=== PATIENT | male | born 1985 | race American Indian/Alaskan Native ===

== ENCOUNTER 2016-12-10 06:32 | Emergency (ER) | payer MEDICARE, OTHER ==
[2016-12-10 06:42] VITALS: BMI 18.1
[2016-12-10 06:47] VITALS: RESP 18; O2SAT 100
[2016-12-10] MEDS ORDERED: Sodium Chloride 0.9% 1,000 ML IV STA (07:29)
[2016-12-10] MEDS ORDERED: HYDROmorphone 1 mg/ml ISec IVP STA (07:29)
--- NOTE | 2016-12-10 07:35 | ED PDOC ---
Arrival/HPI - General Chief Complaint: Abdominal Pain Time Seen by Provider: 12/10/16 07:07 Historian: Patient - History of Present Illness Narrative History of Present Illness (Text): 12/10/16 07:35 31 year old male returns to the emergency department with generalized abdominal pain that feels like his pancreatitis symptoms. Patient was seen in the emergency department yesterday and treated for the same complaints of abdominal pain, nausea, and vomiting. He was offered admission but reported that he wanted to be discharged to follow-up with his pain management doctor. Patient claims the pain is worsening. He is requesting pain medication. When initially giving the history, patient appears to be writhing in pain but when I offered admission, patient appears to be in no distress and is able to speak in full sentences without difficulty. He reports multiple episodes of vomiting and diarrhea. Denies chest pain or shortness of breath. PMD: Dr. Dao Symptom Onset: Gradual Symptom Course: Unchanged Modifying Factors (Text): None Associated Symptoms (Text): None Past Medical History - Provider Review Nursing Documentation Reviewed: Yes - Cardiac Hx Cardiac Disorders: No - Pulmonary Hx Respiratory Disorders: No - Neurological Hx Neurological Disorder: No - HEENT Hx HEENT Disorder: No - Renal Hx Renal Disorder: No - Endocrine/Metabolic Hx Diabetes Mellitus Type 1: Yes - Hematological/Oncological Hx Blood Disorders: No - Integumentary Hx Dermatological Disorder: No - Musculoskeletal/Rheumatological Hx Musculoskeletal Disorders: No - Gastrointestinal Hx Pancreatitis: Yes - Genitourinary/Gynecological Hx Genitourinary Disorders: No - Psychiatric Hx Psychophysiologic Disorder: No Hx Substance Use: No - Surgical History Hx Cholecystectomy: Yes Family/Social History - Physician Review Nursing Documentation Reviewed: Yes Family/Social History: Unknown Family HX Smoking Status: Light Smoker < 10 Cigarettes Daily Hx Alcohol Use: No Hx Substance Use: No Allergies/Home Meds Allergies/Adverse Reactions: Allergies famotidine [From Pepcid] Allergy (Verified 12/10/16 06:47) NAUSEA ketorolac tromethamine [From Toradol] Allergy (Verified 12/10/16 06:47) NAUSEA tramadol Allergy (Verified 12/10/16 06:47) NAUSEA Home Medications: Home Meds Medication Instructions Recorded Confirmed No Known Home Med 12/10/16 12/10/16 Review of Systems - Review of Systems Constitutional: absent: Fevers Eyes: absent: Vision Changes, Eye Pain ENT: absent: Hearing Changes, Sinus Congestion Respiratory: absent: SOB, Cough Cardiovascular: absent: Chest Pain, Palpitations, Edema, Calf Pain Gastrointestinal: Abdominal Pain, Diarrhea, Nausea, Vomiting. absent: Constipation Genitourinary Male: absent: Dysuria, Frequency Musculoskeletal: absent: Neck Pain Skin: absent: Rash, Pruritis Neurological: absent: Headache, Dizziness Endocrine: absent: Polyuria Hemo/Lymphatic: absent: Easy Bleeding Psychiatric: absent: Depression Physical Exam Vital Signs Reviewed: Yes Vital Signs Temp Pulse Resp BP Pulse Ox 12/10/16 09:01 90 18 102/62 100 12/10/16 06:46 98.4 F 84 18 111/57 L 100 Temperature: Afebrile Blood Pressure: Normal Pulse: Regular Respiratory Rate: Normal Appearance: Positive for: Well-Appearing, Non-Toxic, Uncomfortable Pain Distress: None Mental Status: Positive for: Alert and Oriented X 3 - Systems Exam Head: Present: Atraumatic, Normocephalic Pupils: Present: PERRL Extroacular Muscles: Present: EOMI Conjunctiva: Present: Normal Mouth: Present: Moist Mucous Membranes Neck: Present: Normal Range of Motion Respiratory/Chest: Present: Clear to Auscultation, Good Air Exchange. No: Respiratory Distress, Accessory Muscle Use Cardiovascular: Present: Regular Rate and Rhythm, Normal S1, S2. No: Murmurs Abdomen: Present: Tenderness (Mild generalized tenderness), Normal Bowel Sounds. No: Distention, Peritoneal Signs, Rebound, Guarding Back: Present: Normal Inspection Upper Extremity: Present: Normal Inspection. No: Cyanosis, Edema Lower Extremity: Present: Normal Inspection. No: Edema Neurological: Present: GCS=15, CN II-XII Intact, Speech Normal (Speaking full sentences without difficulty) Skin: Present: Warm, Dry, Normal Color. No: Rashes Psychiatric: Present: Alert, Oriented x 3, Normal Insight, Normal Concentration Medical Decision Making ED Course and Treatment: Impression: 31 year old male with a history of pancreatitis returns to the emergency department with same pancreatitis symptoms of abdominal pain, nausea, and vomiting after being seen yesterday for same symptoms. He has failed outpatient therapy and will likely need admission Differential Diagnosis include but are not limited to: Plan: -- IV fluids --Pain medication, anti-emetic --Labs -- Reassess and disposition Prior Visits: Notes and results from previous visits were reviewed. Previous records show that patient has old records under a different account showing multiple visits to the emergency department for the same symptoms with patient requesting pain medicine prior to physical exam. Patient was seen yesterday 12/09/16 for same symptoms and discharged home. CT Abdomen/Pelvis IMPRESSION from 12/09/16: 1. Pancreatic parenchyma is calcified and atrophic consistent with chronic pancreatitis. No significant findings or change to suggest acute pancreatitis. 2. Mild fluid distention of the colon with a few air-fluid levels without signs of obstruction. Some wall thickening in the right colon which may reflect mild colitis versus luminal collapse. 3. Mild fluid distention of stomach and duodenum with air fluid levels may reflect gastroenteritis Progress Notes: 12/10/16 08:29 EKG done at triage shows NSR at 92bpm with QTc:487. No ST changes. Labs reviewed and essentially unchanged from yesterday. 12/10/16 08:56 On reevaluation, I offered patient admission. He reports that he feels better and reports that he wants to be discharged. He reports that he has follow-up with [facility] for surgery to remove his pancreas (scheduled for December) and has pain mgmt follow-up. He is tolerating po. Will dc - Lab Interpretations Lab Results: 12/10/16 07:46 12/10/16 07:46 Lab Results 12/10/16 07:46: WBC 6.3, RBC 3.81, Hgb 11.2 L, Hct 32.9 L, MCV 86.4, MCH 29.4, MCHC 34.0, RDW 13.7, Plt Count 142, MPV 10.7, Gran % 73.8 H, Lymph % (Auto) 21.7 L, [place] % (Auto) 3.8, Eos % (Auto) 0.5 L, Baso % (Auto) 0.2, Gran # 4.66, Lymph # 1.4, [place] # 0.2, Eos # 0.0, Baso # 0.01, Sodium 140, Potassium 3.6, Chloride 107, Carbon Dioxide 25, Anion Gap 12, BUN < 2 L, Creatinine 0.6, Est GFR ( Amer) > 60, Est GFR (Non-Af Amer) > 60, Random Glucose 168 H, Calcium 8.3 L, Total Bilirubin 1.4 H, AST 24, ALT 28, Alkaline Phosphatase 119, Lactate Dehydrogenase 570, Total Protein 5.8, Albumin 3.0, Globulin 2.8, Albumin /Globulin Ratio 1.1, Lipase < 10 L - Medication Orders Current Medication Orders: Discontinued Medications Diphenhydramine HCl (Benadryl) 50 mg IVP STAT STA Stop: 12/10/16 07:56 Last Admin: 12/10/16 08:04 Dose: 50 MG IVP Administration Document 12/10/16 08:04 OCS (Rec: 12/10/16 08:04 OCS [id number]) Charges for Administration # of IVP Administrations 1 Hydromorphone HCl (Dilaudid) 1 mg IVP STAT STA Stop: 12/10/16 07:30 Last Admin: 12/10/16 07:45 Dose: 1 MG IVP Administration Document 12/10/16 07:45 OCS (Rec: 12/10/16 07:57 OCS [id number]) Charges for Administration # of IVP Administrations 1 Sodium Chloride (Sodium Chloride 0.9%) 1,000 mls @ 999 mls/hr IV .Q1H1M STA Stop: 12/10/16 08:29 Last Admin: 12/10/16 07:45 Dose: 999 MLS/HR eMAR Start Stop Document 12/10/16 07:45 OCS (Rec: 12/10/16 07:58 OCS [id number]) Intravenous Solution Start Date 12/10/16 Start Time 07:45 - Scribe Statement The provider has reviewed the documentation as recorded by the Reese Fontanez Provider Scribe Attestation: All medical record entries made by the Reese were at my direction and personally dictated by me. I have reviewed the chart and agree that the record accurately reflects my personal performance of the history, physical exam, medical decision making, and the department course for this patient. I have also personally directed, reviewed, and agree with the discharge instructions and disposition. Disposition/Present on Arrival - Present on Arrival Any Indicators Present on Arrival: No History of DVT/PE: No History of Uncontrolled Diabetes: No Urinary Catheter: No History of Decub. Ulcer: No History Surgical Site Infection Following: None - Disposition Have Diagnosis and Disposition been Completed?: Yes Diagnosis: Pancreatitis Disposition: HOME/ ROUTINE Disposition Time: 08:57 Patient Plan: Discharge Patient Problems: Current Active Problems Problem Status Diagnosed Pancreatitis Acute Condition: GOOD Discharge Instructions (ExitCare): Pancreatitis (ED) Additional Instructions: Follow up with your pain mgmt doctor today. Follow-up with your PMD within 2 days. Continue to follow-up with all specialists for your pancreatitis. Return to ED if condition worsens. Referrals: Juan Dao MD [Primary Care Provider] - Follow up with primary
[2016-12-10 07:52] LABS: ADD MANUAL DIFF? NO
[2016-12-10] MEDS ORDERED: DiphenhydrAMINE 50 mg/ml Inj IVP STA (07:55)
[2016-12-10 07:58] LABS: BASO # 0.01 K/mm3 (0.0-2.0); BASO % 0.2 % (0.0-3.0); EOS % 0.5 % (1.5-5.0); GRAN # 4.66 (1.4-6.5); GRAN % 73.8 % (50.0-68.0); HEMATOCRIT 32.9 % (42.0-52.0); LYMPH # 1.4 (1.2-3.4); LYMPH % 21.7 % (22.0-35.0); MEAN CELL VOLUME 86.4 fL (80.0-105.0); MEAN CORPUSCULAR HEMOGLOBIN 29.4 pg (25.0-35.0); MEAN PLATELET VOLUME 10.7 fl (7.0-11.0); MONO # 0.2 (0.1-0.6); MONO % 3.8 % (1.0-6.0); PLATELET COUNT 142 10^3/uL (120.0-450.0); RED CELL DISTRIBUTION WIDTH 13.7 % (11.5-14.5); WHITE BLOOD COUNT 6.3 10^3/ul (4.5-11.0)
[2016-12-10 08:22] LABS: ALB/GLOB RATIO 1.1 (1.1-1.8); ALKALINE PHOSPHATASE 119 U/L (38-133); ALT/SGPT 28 U/L (7-56); AST/SGOT 24 U/L (15-59); BILIRUBIN,TOTAL 1.4 mg/dL (0.2-1.3); BLOOD UREA NITROGEN < 2 mg/dL (7-21); CALCIUM 8.3 mg/dL (8.4-10.5); CARBON DIOXIDE 25 mmol/L (21-33); CHLORIDE 107 mmol/L (98-107); GFR AFRICAN-AMERICAN > 60; GLUCOSE,RANDOM 168 mg/dL (70-110); LIPASE < 10 U/L (23-300); POTASSIUM 3.6 mmol/L (3.6-5.0); SODIUM 140 mmol/L (132-148); TOTAL PROTEIN 5.8 g/dL (5.8-8.3)
--- NOTE | 2016-12-10 10:29 | CARD ---
APPROVED REPORT EKG Measurement Heart [id number] LA [id number] <Conclusion> Sinus rhythm with short LA RVCD NSSTW changes Prolonged QTc
[2016-12-10 11:16] VITALS: BP 123/60; PULSE 85; TEMP 98.2
== END 2016-12-10 11:20 | disposition home or self-care (01) ==
LOC: ED 06:32 → ERH 10:50 → UNDOADMIN 10:50 → ED 11:20
DX: K85.90 Acute pancreatitis without necrosis or infection, unspecified (principal); F17.210 Nicotine dependence, cigarettes, uncomplicated; E10.9 Type 1 diabetes mellitus without complications
CPT/HCPCS: 80053; 83615; 83690; 85025; 93005; 96374; 96375; 99283; J1170; J1200; J7040

== ENCOUNTER 2016-12-11 11:30 | Inpatient (IN) | payer MEDICARE, OTHER ==
[2016-12-11 11:44] VITALS: O2SAT 100
[2016-12-11] MEDS ORDERED: Sodium Chloride 0.9% 1,000 ML IV STA (11:51)
[2016-12-11] MEDS ORDERED: DiphenhydrAMINE 50 mg/ml Inj IVP ONE (11:52)
--- NOTE | 2016-12-11 11:57 | ED PDOC ---
Arrival/HPI - General Chief Complaint: Abdominal Pain Time Seen by Provider: 12/11/16 11:43 Historian: Patient - History of Present Illness Narrative History of Present Illness (Text): 12/11/16 11:56 A 31 year old male, whose past medical history includes pancreatitis, presents to the emergency department complaining of generalized abdominal pain. Patient notes nausea, non-bilious non-bloody vomiting, diarrhea and itchiness. Patient states his symptoms feel similar to previous pancreatitis flare up. Patient was seen in the emergency department the past 2 days for the same complaints. Patient denies any fever, chest pain, shortness of breath or any other complaints. PMD: Dr. Dao Time/Duration: Other (3 days) Symptom Course: Unchanged Quality: Other Context: Other Associated Symptoms (Text): 12/11/16 12:44 Chronic abdominal pain secondary to chronic pancreatitis. Cholecystectomy many years ago. Patient was seen in the emergency department yesterday and the day before yesterday. He refused admission yesterday. Had a CT scan 2 days ago which showed no acute findings. Nausea and vomiting but no diarrhea. He is thin cachectic and chronically ill-appearing. He denies alcohol or drugs. He also complains of severe generalized body itching. Past Medical History - Provider Review Nursing Documentation Reviewed: Yes - Infectious Disease Hx of Infectious Diseases: None - Cardiac Hx Cardiac Disorders: No - Pulmonary Hx Respiratory Disorders: No - Neurological Hx Neurological Disorder: No - HEENT Hx HEENT Disorder: No - Renal Hx Renal Disorder: No - Endocrine/Metabolic Hx Diabetes Mellitus Type 1: Yes - Hematological/Oncological Hx Blood Disorders: No - Integumentary Hx Dermatological Disorder: No - Musculoskeletal/Rheumatological Hx Musculoskeletal Disorders: No - Gastrointestinal Hx Pancreatitis: Yes - Genitourinary/Gynecological Hx Genitourinary Disorders: No - Psychiatric Hx Psychophysiologic Disorder: No Hx Substance Use: No - Surgical History Hx Cholecystectomy: Yes Family/Social History - Physician Review Nursing Documentation Reviewed: Yes Family/Social History: No Known Family HX Smoking Status: Light Smoker < 10 Cigarettes Daily Hx Alcohol Use: No Hx Substance Use: No Allergies/Home Meds Allergies/Adverse Reactions: Allergies famotidine [From Pepcid] Allergy (Verified 12/10/16 06:47) NAUSEA ketorolac tromethamine [From Toradol] Allergy (Verified 12/10/16 06:47) NAUSEA tramadol Allergy (Verified 12/10/16 06:47) NAUSEA Home Medications: Home Meds Medication Instructions Recorded Confirmed Insulin Aspart, Recombinant See Protocol 12/11/16 [Novolog] Review of Systems - Physician Review All systems were reviewed & negative as marked: Yes - Review of Systems Constitutional: Weight Change. absent: Fevers Respiratory: absent: SOB Cardiovascular: absent: Chest Pain Gastrointestinal: Abdominal Pain, Diarrhea, Nausea, Vomiting Skin: Pruritis, Other (itchiness) Physical Exam Vital Signs Reviewed: Yes Vital Signs Temp Pulse Resp BP Pulse Ox 12/11/16 13:49 75 18 105/51 L 100 12/11/16 12:00 79 18 102/42 L 100 12/11/16 11:43 98.7 F 84 20 100/24 L 100 Temperature: Afebrile Blood Pressure: Hypotensive Pulse: Regular Respiratory Rate: Normal Appearance: Positive for: Non-Toxic, Comfortable, Ill-Appearing, Cachectic, Other (Thin) Pain Distress: Other (Pain out of proportion to examination) Mental Status: Positive for: Alert and Oriented X 3 - Systems Exam Head: Present: Atraumatic, Normocephalic Pupils: Present: PERRL Extroacular Muscles: Present: EOMI Conjunctiva: Present: Normal Mouth: Present: Moist Mucous Membranes Pharnyx: No: ERYTHEMA, EXUDATE, TONSILS ENLARGED Neck: Present: Normal Range of Motion Respiratory/Chest: Present: Clear to Auscultation, Good Air Exchange. No: Respiratory Distress, Accessory Muscle Use Cardiovascular: Present: Regular Rate and Rhythm, Normal S1, S2. No: Murmurs Abdomen: Present: Tenderness (Abdominal tenderness to palpation, pain out of proportion to exam), Normal Bowel Sounds, Guarding (Voluntary guarding). No: Distention, Peritoneal Signs, Rebound Back: No: CVA Tenderness Upper Extremity: Present: Normal Inspection. No: Cyanosis, Edema Lower Extremity: Present: Normal Inspection. No: Edema Neurological: Present: GCS=15, CN II-XII Intact, Speech Normal, Motor Func Grossly Intact Skin: Present: Warm, Dry, Normal Color. No: Rashes Psychiatric: Present: Alert, Oriented x 3, Normal Insight, Normal Concentration Medical Decision Making ED Course and Treatment: 12/11/16 11:56 Impression: A 31 year old male with abdominal pain. Patient notes nausea, vomiting, diarrhea and itchiness. Plan: -- Labs -- Benadryl, Protonix, IV fluids and Zofran -- Reassess and disposition Prior Visits: Notes and results from previous visits were reviewed. Patient in ED the past 2 days for the same complaints. Patient had a CT done on 12/09/16, which showed: Report Date : 12/10/2016 07:45:32 PROCEDURE: CT Abdomen and Pelvis with contrast Dictator : Vlad Azevedo MD IMPRESSION: Nonspecific circumferential mural thickening of multiple loops of small bowel in the left side of the abdomen, presumably jejunum. Consistent with nonspecific enteritis. Status post cholecystectomy. Nonspecific 1.3 cm low -attenuation lesion in the left hepatic lobe. Findings consistent with chronic pancreatitis. No evidence of acute pancreatitis. No other significant abnormality. Progress Notes: 12/11/16 13:[address] Coleman, who states to page medicine acquisitions analyst. 12/11/16 14:[address] Fountain, who refused admission. Recommends hospitalist. Spoke with Dr. Coleman, who agrees with admission under his service. - Lab Interpretations Lab Results: 12/11/16 12:25 12/11/16 12:25 Lab Results 12/11/16 12:25: WBC 3.8 L D, RBC 3.74, Hgb 11.1 L, Hct 32.5 L, MCV 86.9, MCH 29.7, MCHC 34.2, RDW 14.0, Plt Count 213, MPV 9.6, Gran % 51.9, Lymph % (Auto) 43.3 H, [place] % (Auto) 3.7, Eos % (Auto) 0.8 L, Baso % (Auto) 0.3, Gran # 1.98, Lymph # 1.7, [place] # 0.1, Eos # 0.0, Baso # 0.01, Sodium 138, Potassium 3.6, Chloride 107, Carbon Dioxide 25, Anion Gap 10, BUN < 2 L, Creatinine 0.5, Est GFR ( Amer) > 60, Est GFR (Non-Af Amer) > 60, Random Glucose 291 H, Calcium 8.2 L, Total Bilirubin 1.5 H, AST 21, ALT 16, Alkaline Phosphatase 115, Total Protein 5.8, Albumin 3.0, Globulin 2.8, Albumin/Globulin Ratio 1.1, Lipase < 10 L I have reviewed the lab results: Yes - Medication Orders Current Medication Orders: Sodium Chloride (Sodium Chloride 0.9%) 1,000 mls @ 100 mls/hr IV .Q10H HAROLDO Insulin Human Regular (Humulin R Med) 0 units SC ACHS HAROLDO PRN Reason: Protocol Morphine Sulfate (Morphine) 2 mg IVP Q6H PRN PRN Reason: Pain, moderate (4-7) Ondansetron HCl (Zofran Inj) 4 mg IVP Q6H PRN PRN Reason: Nausea/Vomiting Pantoprazole Sodium (Protonix Inj) 40 mg IVP DAILY HAROLDO Discontinued Medications Diphenhydramine HCl (Benadryl) 50 mg IVP ONCE ONE Stop: 12/11/16 11:53 Last Admin: 12/11/16 12:30 Dose: 50 MG IVP Administration Document 12/11/16 12:30 SF (Rec: 12/11/16 12:30 SF [facility] [id number]) Charges for Administration # of IVP Administrations 1 Sodium Chloride (Sodium Chloride 0.9%) 1,000 mls @ 1,000 mls/hr IV .Q1H STA Stop: 12/11/16 12:50 Last Admin: 12/11/16 12:30 Dose: 1,000 MLS/HR eMAR Start Stop Document 12/11/16 12:30 SF (Rec: 12/11/16 12:30 SF [facility] [id number]) Intravenous Solution Start Date 12/11/16 Start Time 12:30 End Date 12/11/16 End time 13:30 Total Infusion Time 60 Ondansetron HCl (Zofran Inj) 4 mg IVP STAT STA Stop: 12/11/16 11:52 Last Admin: 12/11/16 12:30 Dose: 4 MG IVP Administration Document 12/11/16 12:30 SF (Rec: 12/11/16 12:30 SF [facility] [id number]) Charges for Administration # of IVP Administrations 1 Pantoprazole Sodium (Protonix Inj) 40 mg IVP STAT STA Stop: 12/11/16 11:52 Last Admin: 12/11/16 12:29 Dose: 40 MG IVP Administration Document 12/11/16 12:29 SF (Rec: 12/11/16 12:30 SF [facility] [id number]) Charges for Administration # of IVP Administrations 1 - Scribe Statement The provider has reviewed the documentation as recorded by the Scribe Disposition/Present on Arrival - Present on Arrival Any Indicators Present on Arrival: No History of DVT/PE: No History of Uncontrolled Diabetes: No Urinary Catheter: No History of Decub. Ulcer: No History Surgical Site Infection Following: None - Disposition Have Diagnosis and Disposition been Completed?: Yes Diagnosis: Chronic pancreatitis Disposition: HOSPITALIZED Disposition Time: 14:25 Patient Plan: Observation Patient Problems: Current Active Problems Problem Status Diagnosed Chronic pancreatitis Acute Condition: GOOD
[2016-12-11 13:01] LABS: ADD MANUAL DIFF? NO
[2016-12-11 13:02] LABS: BASO # 0.01 K/mm3 (0.0-2.0); BASO % 0.3 % (0.0-3.0); EOS % 0.8 % (1.5-5.0); GRAN # 1.98 (1.4-6.5); GRAN % 51.9 % (50.0-68.0); HEMATOCRIT 32.5 % (42.0-52.0); LYMPH # 1.7 (1.2-3.4); LYMPH % 43.3 % (22.0-35.0); MEAN CELL VOLUME 86.9 fL (80.0-105.0); MEAN CORPUSCULAR HEMOGLOBIN 29.7 pg (25.0-35.0); MEAN CORPUSCULAR HGB CONC 34.2 g/dl (31.0-37.0); MEAN PLATELET VOLUME 9.6 fl (7.0-11.0); MONO # 0.1 (0.1-0.6); MONO % 3.7 % (1.0-6.0); PLATELET COUNT 213 10^3/uL (120.0-450.0); WHITE BLOOD COUNT 3.8 10^3/ul (4.5-11.0)
[2016-12-11 13:12] LABS: ALB/GLOB RATIO 1.1 (1.1-1.8); ALKALINE PHOSPHATASE 115 U/L (38-133); ALT/SGPT 16 U/L (7-56); AST/SGOT 21 U/L (15-59); BILIRUBIN,TOTAL 1.5 mg/dL (0.2-1.3); CALCIUM 8.2 mg/dL (8.4-10.5); CARBON DIOXIDE 25 mmol/L (21-33); CHLORIDE 107 mmol/L (98-107); GFR AFRICAN-AMERICAN > 60; GLUCOSE,RANDOM 291 mg/dL (70-110); POTASSIUM 3.6 mmol/L (3.6-5.0); SODIUM 138 mmol/L (132-148); TOTAL PROTEIN 5.8 g/dL (5.8-8.3)
[2016-12-11 13:17] LABS: BLOOD UREA NITROGEN < 2 mg/dL (7-21); LIPASE < 10 U/L (23-300)
[2016-12-11] MEDS: Sodium Chloride 0.9% 1,000 ML IV SCH (15:15)
--- NOTE | 2016-12-11 15:32 | CP.PCM.HP ---
<Juan Liang - Last Filed: 12/11/16 15:44> History of Present Illness - History of Present Illness History of Present Illness: CC: Abdominal Pain 31yo M with PMHx of Chronic pancreatitis here for evaluation of abdominal pain. Patient states that he has had multiple episodes such as this in the past. He was diagnosed with pancreatitis when he was 15 years old. He has had multiple episodes of severe epigastric pain since then. Last pancreatitis flare was 3 months ago. He states that current flare has been ongoing for the past 3 days. Pain is severe, sharp, located in the epigastric region and radiates throughout the entire abdomen. No exacerbating or remitting factors reported. He states that he was evaluated in the [place] ED a few days ago and obtained a CT scan of the abdomen at that time. He states that he has been having nausea, non- bilious non bloody vomiting, multiple episodes over the past 2 days. He also has had multiple episodes of diarrhea over the past 2 days, denies any bloody stools. He does c/o weight loss but unable to quantify. Denies any F/C. No CP/ SOB. No Headache. No focal deficits. Patient obtained a CT Abd 2 days ago which showed evidence of nonspecific enteritis and evidence of chronic pancreatitis. No Evidence of acute pancreatitis. PMD: [facility] GI: [facility] PMHx: Chronic Pancreatitis PSHx: reports multiple abdominal surgeries with multiple small bowel resections. Cholecystectomy. Family Hx: Denies Social Hx: Denies ETOH, Denies Drugs, Denies Tobacco use. Works as a alliance party promoter Allergy: Pepcid, Toradol - Rash, Tramadol - uncontrolled sneezing Meds: Novolog Sliding Scale Present on Admission - Present on Admission Any Indicators Present on Admission: No Review of Systems - Constitutional Constitutional: absent: Chills, Fever - EENT Eyes: absent: Blurred Vision - Cardiovascular Cardiovascular: absent: Chest Pain, Dyspnea - Respiratory Respiratory: absent: Cough, Dyspnea - Gastrointestinal Gastrointestinal: Abdominal Pain, Diarrhea, Nausea, Vomiting - Genitourinary Genitourinary: absent: Dysuria - Musculoskeletal Musculoskeletal: absent: Abnormal Gait - Neurological Neurological: absent: Abnormal Gait, Dizziness, Headaches - Psychiatric Psychiatric: absent: Anxiety Past Patient History - Infectious Disease Hx of Infectious Diseases: None - Past Medical History & Family History Past Family History: Reviewed and not pertinent - Past Social History Smoking Status: Light Smoker < 10 Cigarettes Daily - CARDIAC Hx Cardiac Disorders: No - PULMONARY Hx Respiratory Disorders: No - NEUROLOGICAL Hx Neurological Disorder: No - HEENT Hx HEENT Problems: No - RENAL Hx Chronic Kidney Disease: No - ENDOCRINE/METABOLIC Hx Diabetes Mellitus Type 1: Yes - HEMATOLOGICAL/ONCOLOGICAL Hx Blood Disorders: No - INTEGUMENTARY Hx Dermatological Problems: No - MUSCULOSKELETAL/RHEUMATOLOGICAL Hx Musculoskeletal Disorders: No - GASTROINTESTINAL Hx Pancreatitis: Yes - GENITOURINARY/GYNECOLOGICAL Hx Genitourinary Disorders: No - PSYCHIATRIC Hx Psychophysiologic Disorder: No Hx Substance Use: No - SURGICAL HISTORY Hx Cholecystectomy: Yes Meds Allergies/Adverse Reactions: Allergies Allergy/AdvReac Type Severity Reaction Status Date / Time famotidine [From Pepcid] Allergy NAUSEA Verified 12/11/16 21:17 ketorolac tromethamine Allergy NAUSEA Verified 12/11/16 21:17 [From Toradol] tramadol Allergy NAUSEA Verified 12/11/16 21:17 Physical Exam - Constitutional Appears: Cachectic - Head Exam Head Exam: ATRAUMATIC, NORMAL INSPECTION, NORMOCEPHALIC - Eye Exam Eye Exam: EOMI, Normal appearance, PERRL. absent: Scleral icterus Pupil Exam: PERRL - ENT Exam ENT Exam: Mucous Membranes Moist, Normal Exam - Neck Exam Neck exam: Positive for: Normal Inspection - Respiratory Exam Respiratory Exam: Clear to Auscultation Bilateral, NORMAL BREATHING PATTERN. absent: Wheezes, Respiratory Distress - Cardiovascular Exam Cardiovascular Exam: REGULAR RHYTHM, RRR, +S1, +S2. absent: JVD - GI/Abdominal Exam GI & Abdominal Exam: Guarding (voluntary guarding), Normal Bowel Sounds, Rigid, Tenderness (Diffusely tender to light palpation) Additional comments: Midline Abdominal scar - Extremities Exam Extremities exam: Positive for: normal inspection. Negative for: calf tenderness - Back Exam Back exam: NORMAL INSPECTION - Neurological Exam Neurological exam: Alert, CN II-XII Intact, Oriented x3 - Skin Skin Exam: Dry, Intact, Normal Color, Warm Results - Vital Signs Recent Vital Signs: Last Vital Signs Temp 98.7 F 12/11/16 11:43 Pulse 75 12/11/16 13:49 Resp 18 12/11/16 13:49 BP 105/51 L 12/11/16 13:49 Pulse Ox 100 12/11/16 13:49 - Labs Result Diagrams: 12/11/16 12:25 12/11/16 12:25 Assessment & Plan - Assessment and Plan (Free Text) Assessment: 31yo M with PMHx of Chronic Pancreatitis here for evaluation of diffuse abdominal pain. 1. Abdominal pain Consider pain medication seeking behavior Lipase negative CT Abd w/contrast 12/09: nonspecific enteritis, Chronic pancreatitis with no evidence of acute pancreatitis. Consult GI, Dr. Hook, appreciate recs NPO Zofran 4mg q6 prn Morphine 2mg q6 prn f/u Abd Xray f/u cdiff f/u lipid panel f/u serum alcohol level f/u UDS continue IVF NS @100 serial abdominal exams 2. Hx of DM Insulin SS Accuchecks f/u HbA1c 3. PPx SCDs Protonix 40mg IV Daily Discussed case with Dr. Coleman. Juan Liang PGY1 <Gomez Coleman - Last Filed: 12/12/16 06:52> Results - Vital Signs Recent Vital Signs: Last Vital Signs Temp 98.7 F 12/11/16 22:39 Pulse 69 12/11/16 22:39 Resp 18 12/11/16 22:39 BP 107/59 L 12/11/16 22:39 Pulse Ox 100 12/11/16 15:27 - Labs Result Diagrams: 12/11/16 12:25 12/11/16 12:25 Labs: Laboratory Results - last 24 hr 12/11/16 12/11/16 12/11/16 17:15 17:29 21:55 POC Glucose (mg/dL) 247 H 49 L Urine Color Yellow Urine Appearance Clear Urine pH 6.0 Ur Specific [place] 1.025 Urine Protein Negative Urine Glucose (UA) 100 H Urine Ketones Trace H Urine Blood Negative Urine Nitrate Negative Urine Bilirubin Negative Urine Urobilinogen 0.2 Ur Leukocyte Esterase Negative 12/11/16 22:42 POC Glucose (mg/dL) 247 H Urine Color Urine Appearance Urine pH Ur Specific [place] Urine Protein Urine Glucose (UA) Urine Ketones Urine Blood Urine Nitrate Urine Bilirubin Urine Urobilinogen Ur Leukocyte Esterase Attending/Attestation - Attestation I have personally seen and examined this patient.: Yes I have fully participated in the care of the patient.: Yes I have reviewed all pertinent clinical information: Yes Notes (Text): 12/11/16 31 year old male with past medical history of chronic pancreatitis and diabetes who presents with complaint of abdominal pain. He was seen in the ER for the past 2 days as well with similar presentation and had a CT abd/pelvis which showed nonspecific enteritis and chronic pancreatitis. He was discharged when he reported his pain improved but returned today with diffuse abdominal pain again. Patient reports he has history of chronic pancreatitis since the age of 15. He reports he has had "15-17 surgeries" including cholecystectomy. He denies illicit drug use or alcohol use. He states he had a EGD/colonoscopy in the past which was normal per patient. In ER he appears comfortable except at time of abdominal examination. + Voluntary guarding on palpation but when re-directed not present. He is asking only for iv narcotics and benadryl for chronic itch. He reports multiple drug allergies as above. Will obtain abdominal xray. NPO with iv fluids, antiemetics prn and analgesics. Serial abdominal exams. Utox, alcohol level and lipid panel is ordered. GI evaluation is requested. Continue with insulin ss for diabetes. A1c level is ordered. Gomez Coleman MD Hospitalist.
[2016-12-11 15:53] LABS: CHOLESTEROL 115 mg/dL (130-200)
[2016-12-11] MEDS: Morphine 2 mg/ml ISec IVP PRN ×2 (17:26→22:56)
[2016-12-11] MEDS: Insulin Reg-MEDIUM-Coverage SC SCH ×2 (17:29→22:51)
[2016-12-11 17:41] LABS: URINE BILIRUBIN NEGATIVE (NEGATIVE); URINE BLOOD NEGATIVE (NEGATIVE); URINE GLUCOSE (UA) 100 mg/dL (NEGATIVE); URINE KETONE TRACE mg/dL (NEGATIVE); URINE LEUKOCYTE ESTERASE NEGATIVE Leu/uL (NEGATIVE); URINE PROTEIN NEGATIVE mg/dL (<30 mg/dL); URINE UROBILINOGEN 0.2 E.U./dL (<1 E.U./dL)
[2016-12-11 17:43] LABS: URINE APPEARANCE CLEAR (CLEAR); URINE COLOR YELLOW (YELLOW)
--- NOTE | 2016-12-11 19:02 | RAD ---
HISTORY: Abd pain COMPARISON: No prior. FINDINGS: BOWEL: Normal abdominal bowel gas pattern. No evidence of bowel obstruction. No hepatosplenomegaly. BONES: Normal. OTHER FINDINGS: None. IMPRESSION: Normal bowel gas pattern.
[2016-12-11] MEDS ORDERED: Dextrose 50% SYRINGE Inj (50 ml) IVP ONE (22:04)
[2016-12-11 22:58] VITALS: BMI 18.3
[2016-12-11] MEDS ORDERED: Influenza Vaccine 45 MCG/0.5 ml IM ONE (22:58)
[2016-12-11] MEDS ORDERED: Pneumococcal 23-Valent Vaccine IM ONE (22:58)
[2016-12-12] MEDS: Sodium Chloride 0.9% 1,000 ML IV SCH ×3 (02:53→23:22)
[2016-12-12] MEDS: Morphine 2 mg/ml ISec IVP PRN ×4 (04:06→19:40)
[2016-12-12] MEDS: Insulin Reg-MEDIUM-Coverage SC SCH ×4 (08:25→21:57)
--- NOTE | 2016-12-12 08:27 | CP.PCM.CON ---
<Farrah Elder - Last Filed: 12/12/16 09:55> History of Present Illness - History of Present Illness History of Present Illness: Gastroenterology Fellow/PGY4 Consult Note Patient is a 31 year old male with history of Chronic pancreatitis presenting with abdominal pain. At present evaluation, patient is irrate and upset that he is not receiving enough pain medication and not the right pain medication. Stating "he needs Dilaudid and morphine is not doing anything". He does not feel that providing his history is going to help and believes "I just need my pain improved and all the questions are not important". Questioning asked without answer include underlying cause of chronic pancreatitis, prior surgeries other than cholecystectomy, when and why admitted to [facility] last for pancreatitis, number of episodes of vomiting and diarrhea. All responses were "not important and why won't the doctors give me pain medicine". He as well refused lab draws stating to insurance adviser "not needed". Patient does state left abdominal pain has been worsening over the last three days with three ER presentations, pain scale 23/10. in exaggeration of vomiting fourteen times and doesn't know the difference between vomiting food/bile/blood and it is not important. Admits to have diarrhea at least five times a day which is chronic. He refuses to answer presence of melena or hematochezia. Denies diarrhea overnight. He states he has lost weight, unable to quantify. He denies fever, chills, sweats, sick contacts, or recent antibiotics. Refuses to discuss prior endoscopic evaluation. Family-denies Pancreatic cancer, stomach cancer, colon cancer, pancreatitis Social-denies tobacco, alcohol, illicit drugs Surgery-only endorses cholecystectomy, refuses additional questioning Review of Systems - Review of Systems Systems not reviewed;Unavailable: Other Review of Systems: A 12-point review of systems limited secondary to patient being uncooperative to questioning Past Patient History - Infectious Disease Hx of Infectious Diseases: None - Past Medical History & Family History Past Family History: Reviewed and not pertinent - Past Social History Smoking Status: Never Smoked - CARDIAC Hx Cardiac Disorders: No - PULMONARY Hx Respiratory Disorders: No - NEUROLOGICAL Hx Neurological Disorder: No - HEENT Hx HEENT Problems: No - RENAL Hx Chronic Kidney Disease: No - ENDOCRINE/METABOLIC Hx Endocrine Disorders: Yes Hx Diabetes Mellitus Type 1: Yes - HEMATOLOGICAL/ONCOLOGICAL Hx Blood Disorders: No - INTEGUMENTARY Hx Dermatological Problems: Yes (GENERALIZED SKIN DRYNESS,PUSTULES WITH ITCHING, TATTOOS) - MUSCULOSKELETAL/RHEUMATOLOGICAL Hx Musculoskeletal Disorders: No Hx Falls: No - GASTROINTESTINAL Hx Gastrointestinal Disorders: Yes Hx Pancreatitis: Yes (CHRONIC) - GENITOURINARY/GYNECOLOGICAL Hx Genitourinary Disorders: No - PSYCHIATRIC Hx Psychophysiologic Disorder: No Hx Substance Use: No - SURGICAL HISTORY Hx Surgeries: Yes (MULTIPLE ABDOMINAL SURGERYAND MULTIPLE SB RESECTION.) Hx Cholecystectomy: Yes Meds Allergies/Adverse Reactions: Allergies Allergy/AdvReac Type Severity Reaction Status Date / Time famotidine [From Pepcid] Allergy NAUSEA Verified 12/11/16 21:17 ketorolac tromethamine Allergy NAUSEA Verified 12/11/16 21:17 [From Toradol] tramadol Allergy NAUSEA Verified 12/11/16 21:17 - Medications Medications: Current Medications Sodium Chloride (Sodium Chloride 0.9%) 1,000 mls @ 100 mls/hr IV .Q10H [facility] Last Admin: 12/12/16 02:53 Dose: 100 mls/hr Insulin Human Regular (Humulin R Med) 0 units SC ACHS [facility] PRN Reason: Protocol Last Admin: 12/11/16 22:51 Dose: Not Given Morphine Sulfate (Morphine) 2 mg IVP Q6H PRN PRN Reason: Pain, moderate (4-7) Last Admin: 12/12/16 04:06 Dose: 2 mg Ondansetron HCl (Zofran Inj) 4 mg IVP Q6H PRN PRN Reason: Nausea/Vomiting Pantoprazole Sodium (Protonix Inj) 40 mg IVP DAILY [facility] Physical Exam - Constitutional Appears: Non-toxic, No Acute Distress - Head Exam Head Exam: ATRAUMATIC, NORMOCEPHALIC - Eye Exam Eye Exam: EOMI, PERRL Pupil Exam: PERRL. absent: Miosis, Mydriatic - ENT Exam ENT Exam: Mucous Membranes Moist, Normal Oropharynx - Neck Exam Neck exam: Positive for: Full Rom, Normal Inspection - Respiratory Exam Respiratory Exam: Clear to Auscultation Bilateral. absent: Rales, Rhonchi, Wheezes - Cardiovascular Exam Cardiovascular Exam: RRR, +S1, +S2. absent: Gallop, Rubs - GI/Abdominal Exam GI & Abdominal Exam: Normal Bowel Sounds, Soft, Tenderness. absent: Distended, Firm, Guarding, Organomegaly, Rebound, Rigid Additional comments: limited exam with patient refusal to lay supine or move upper extremities for complete exam, extreme curling up of body to minimal, superficial palpation of abdominal wall - Extremities Exam Extremities exam: Positive for: full ROM. Negative for: pedal edema - Neurological Exam Neurological exam: Alert - Psychiatric Exam Psychiatric exam: Agitated - Skin Skin Exam: Dry, Intact, Normal Color, Warm Results - Vital Signs Recent Vital Signs: Last Vital Signs Temp 98.7 F 12/11/16 22:39 Pulse 69 12/11/16 22:39 Resp 18 12/11/16 22:39 BP 107/59 L 12/11/16 22:39 Pulse Ox 100 12/11/16 15:27 - Labs Result Diagrams: 12/11/16 12:25 12/11/16 12:25 Labs: Laboratory Results - last 24 hr 12/11/16 12/11/16 12/11/16 17:15 17:29 21:55 POC Glucose (mg/dL) 247 H 49 L Urine Color Yellow Urine Appearance Clear Urine pH 6.0 Ur Specific [place] 1.025 Urine Protein Negative Urine Glucose (UA) 100 H Urine Ketones Trace H Urine Blood Negative Urine Nitrate Negative Urine Bilirubin Negative Urine Urobilinogen 0.2 Ur Leukocyte Esterase Negative 12/11/16 12/12/16 22:42 07:25 POC Glucose (mg/dL) 247 H 129 H Urine Color Urine Appearance Urine pH Ur Specific [place] Urine Protein Urine Glucose (UA) Urine Ketones Urine Blood Urine Nitrate Urine Bilirubin Urine Urobilinogen Ur Leukocyte Esterase Assessment & Plan - Assessment and Plan (Free Text) Assessment: 31 year old male with history of Chronic pancreatitis presenting with progressive abdominal pain. Uncooperative to history and exam. Recent CT A/P on first of three ER visits showed chronic pancreatitis and thick small bowel of left abdomen. Refuses to discuss prior endoscopic evaluation. Abdominal pain Nonspecific Enteritis Chronic pancreatitis Plan: >difficult assessment in an uncooperative patient >concern for pain medicine seeking behavior >continue supportive care: PPI, antiemetics >primary team managing -pain control >pending Cdiff, stool culture >labs/vitals reviewed- normal LFTs, lipase, electrolytes >patient does report weight loss, diarrhea, vomiting, pain >re-assess additional history if willing to cooperate with medical care >would benefit from elective endoscopic evaluation if never completed: EGD/ colonoscopy/EUS >patient has established Copy Chaser, Dr. Baca, follow up for re- evaluation after acute resolution of symptoms <Tee Hook MD - Last Filed: 12/12/16 11:29> Meds - Medications Medications: Current Medications Amylase (Pancrease 57153 U-5000 [id number] U) 1 u PO AC [facility] Sodium Chloride (Sodium Chloride 0.9%) 1,000 mls @ 100 mls/hr IV .Q10H [facility] Last Admin: 12/12/16 02:53 Dose: 100 mls/hr Insulin Human Regular (Humulin R Med) 0 units SC ACHS [facility] PRN Reason: Protocol Last Admin: 12/12/16 08:25 Dose: Not Given Morphine Sulfate (Morphine) 2 mg IVP Q4H PRN PRN Reason: Pain, severe (8-10) Last Admin: 12/12/16 10:31 Dose: 2 mg Ondansetron HCl (Zofran Inj) 4 mg IVP Q6H PRN PRN Reason: Nausea/Vomiting Pantoprazole Sodium (Protonix Inj) 40 mg IVP DAILY [facility] Last Admin: 12/12/16 10:31 Dose: 40 mg Results - Vital Signs Recent Vital Signs: Last Vital Signs Temp 98.7 F 12/11/16 22:39 Pulse 69 12/11/16 22:39 Resp 18 12/11/16 22:39 BP 107/59 L 12/11/16 22:39 Pulse Ox 100 12/11/16 15:27 - Labs Result Diagrams: 12/11/16 12:25 12/11/16 12:25 Labs: Laboratory Results - last 24 hr 12/11/16 12/11/16 12/11/16 17:15 17:29 21:55 POC Glucose (mg/dL) 247 H 49 L Urine Color Yellow Urine Appearance Clear Urine pH 6.0 Ur Specific [place] 1.025 Urine Protein Negative Urine Glucose (UA) 100 H Urine Ketones Trace H Urine Blood Negative Urine Nitrate Negative Urine Bilirubin Negative Urine Urobilinogen 0.2 Ur Leukocyte Esterase Negative 12/11/16 12/12/16 22:42 07:25 POC Glucose (mg/dL) 247 H 129 H Urine Color Urine Appearance Urine pH Ur Specific [place] Urine Protein Urine Glucose (UA) Urine Ketones Urine Blood Urine Nitrate Urine Bilirubin Urine Urobilinogen Ur Leukocyte Esterase Attending/Attestation - Attestation I have personally seen and examined this patient.: Yes I have fully participated in the care of the patient.: Yes I have reviewed all pertinent clinical information: Yes Notes (Text): 12/12/16 11:26 Patient seen with GI fellow at bedside on rounds. This is a 31 year old male with history of chronic pancreatitis presenting with progressive abdominal pain. Uncooperative to history and exam. Recent CT A/P on first of three ER visits showed chronic pancreatitis and thick small bowel of left abdomen. Refuses to discuss prior endoscopic evaluation. Has pain medication seeking behavior. Asking for dilaudid even though he is on morphine. Not on pancreatic enzymes even though he has history of chronic pancreatitis. Normal LFT, lipase. No choledocholithiasis. Denies change in bowel habits. Will start pancreatic enzymes and clear liquid diet. If tolerates can advance and be discharged Thank you for letting us participate in the care of your patient
[2016-12-12] MEDS: Amylase/Lipase/Protease 5,000 U ECC PO SCH ×2 (13:09→18:39)
--- NOTE | 2016-12-12 13:29 | CP.PCM.PN ---
<Meño Guadalupe - Last Filed: 12/12/16 14:46> Subjective - Date & Time of Evaluation Date of Evaluation: 12/12/16 Time of Evaluation: 08:30 - Subjective Subjective: Patient seen and examined at bedside. Overnight patient complained of abdominal pain and requested for pain medication multiple times. Patient also complains of having multiple vomiting episodes. Patient states morphine is not strong enough to treat with his pain. Despite of his complains, his vitals remained hypotensive. Denies fever, chills, shortness of breath, chest pain, or headache. Discussed with patient in detail about dangers of his low blood pressure and pain medication use, but patient still insists on requesting more pain meds. Objective - Vital Signs/Intake and Output Vital Signs (last 24 hours): Temp Pulse Resp BP Pulse Ox 98.7 F 69 18 107/59 L 100 12/11/16 22:39 12/11/16 22:39 12/11/16 22:39 12/11/16 22:39 12/11/16 15:27 Intake and Output: 12/12/16 12/12/16 06:59 18:59 Intake Total 1200 Balance 1200 - Medications Medications: Current Medications Amylase (Pancrease 12535 U-5000 U-[id number] U) 1 u PO AC [facility] Last Admin: 12/12/16 13:09 Dose: Not Given Sodium Chloride (Sodium Chloride 0.9%) 1,000 mls @ 100 mls/hr IV .Q10H [facility] Last Admin: 12/12/16 02:53 Dose: 100 mls/hr Insulin Human Regular (Humulin R Med) 0 units SC ACHS [facility] PRN Reason: Protocol Last Admin: 12/12/16 11:39 Dose: Not Given Morphine Sulfate (Morphine) 2 mg IVP Q4H PRN PRN Reason: Pain, severe (8-10) Last Admin: 12/12/16 10:31 Dose: 2 mg Ondansetron HCl (Zofran Inj) 4 mg IVP Q6H PRN PRN Reason: Nausea/Vomiting Pantoprazole Sodium (Protonix Inj) 40 mg IVP DAILY [facility] Last Admin: 12/12/16 10:31 Dose: 40 mg - Constitutional Appears: Cachectic - Head Exam Head Exam: ATRAUMATIC, NORMAL INSPECTION, NORMOCEPHALIC - Eye Exam Eye Exam: EOMI, Normal appearance - ENT Exam ENT Exam: Mucous Membranes Moist, Normal Exam - Neck Exam Neck Exam: Normal Inspection - Respiratory Exam Respiratory Exam: Clear to Ausculation Bilateral, NORMAL BREATHING PATTERN. absent: Respiratory Distress - Cardiovascular Exam Cardiovascular Exam: REGULAR RHYTHM, RRR, +S1, +S2. absent: Murmur - GI/Abdominal Exam GI & Abdominal Exam: Soft, Normal Bowel Sounds. absent: Tenderness - Extremities Exam Extremities Exam: Normal Inspection. absent: Calf Tenderness - Back Exam Back Exam: NORMAL INSPECTION - Neurological Exam Neurological Exam: Alert, Awake, Oriented x3 - Psychiatric Exam Psychiatric exam: Manic - Skin Skin Exam: Dry, Intact, Warm Assessment and Plan - Assessment and Plan (Free Text) Assessment: 31yo M with PMHx of Chronic Pancreatitis here for evaluation of diffuse abdominal pain. 1. Abdominal pain Clear pain medication seeking behavior Lipase negative CT Abd w/contrast 12/09: nonspecific enteritis, Chronic pancreatitis with no evidence of acute pancreatitis. Consult GI, Dr. Hook, appreciate recs Advance to clear liquid and start pancreatic enzyme per GI Zofran 4mg q6 prn Morphine 2mg q4 prn Unremarkable Abd Xray f/u cdiff lipid panel cholester 115 serum alcohol level <10 f/u UDS continue IVF NS @100 serial abdominal exams 2. Hx of DM Insulin SS Accuchecks HbA1c 12.5 3. PPx SCDs Protonix 40mg IV Daily <Gomez Coleman - Last Filed: 12/12/16 15:36> Objective - Vital Signs/Intake and Output Vital Signs (last 24 hours): Temp Pulse Resp BP Pulse Ox 98.7 F 69 18 107/59 L 100 12/11/16 22:39 12/11/16 22:39 12/11/16 22:39 12/11/16 22:39 12/11/16 15:27 Intake and Output: 12/12/16 12/12/16 06:59 18:59 Intake Total 1200 Balance 1200 - Medications Medications: Current Medications Amylase (Pancrease 54086 U-5000 U-[id number] U) 1 u PO AC [facility] Last Admin: 12/12/16 13:09 Dose: Not Given Sodium Chloride (Sodium Chloride 0.9%) 1,000 mls @ 100 mls/hr IV .Q10H [facility] Last Admin: 12/12/16 14:00 Dose: 100 mls/hr Insulin Human Regular (Humulin R Med) 0 units SC ACHS [facility] PRN Reason: Protocol Last Admin: 12/12/16 11:39 Dose: Not Given Morphine Sulfate (Morphine) 2 mg IVP Q4H PRN PRN Reason: Pain, severe (8-10) Last Admin: 12/12/16 14:23 Dose: 2 mg Ondansetron HCl (Zofran Inj) 4 mg IVP Q6H PRN PRN Reason: Nausea/Vomiting Pantoprazole Sodium (Protonix Inj) 40 mg IVP DAILY [facility] Last Admin: 12/12/16 10:31 Dose: 40 mg Attending/Attestation - Attestation I have personally seen and examined this patient.: Yes I have fully participated in the care of the patient.: Yes I have reviewed all pertinent clinical information, including history, physical exam and plan: Yes Notes (Text): 12/12/16 15:21 31 year old male with past medical history of chronic pancreatitis and diabetes who presented with complaint of abdominal pain. He was seen in ER several times this week with similar presentation. Recent CT abd/pelvis showed nonspecific enteritis and chronic pancreatitis. He was NPO with iv fluids, analgesics and antiemetics. He continues to complain of nausea/vomiting (not witnessed by staff). He complains of abdominal pain and generalized itching asking only for dilaudid and benadryl. At the same time he is refusing labs and vitals. He refused to give urine drug screen. He is uncooperative with most of interview and examination. Pain medication seeking behavior. He was counselled on risks narcotic abuse. Continue with insulin ss for diabetes. A1c level is ordered. GI evaluation was appreciated. He is started on liquid diet and pancrease enzymes. Plan is for possible discharge today or tomorrow once he is tolerating diet. Gomez Coleman MD Hospitalist.
[2016-12-12 16:53] VITALS: BP 118/72; PULSE 60; RESP 20; TEMP 98.5
[2016-12-12] MEDS ORDERED: DiphenhydrAMINE 50 mg/ml Inj IVP STA (20:16)
[2016-12-13] MEDS: Morphine 2 mg/ml ISec IVP PRN ×5 (00:08→16:01)
[2016-12-13] MEDS ORDERED: DiphenhydrAMINE 50 mg/ml Inj IVP STA ×2 (00:13→11:15)
[2016-12-13] MEDS ORDERED: DiphenhydrAMINE 50 mg/ml Inj IVP ONE (05:11)
[2016-12-13 08:00] LABS: HEMATOCRIT 28.5 % (42.0-52.0); MEAN CELL VOLUME 86.4 fL (80.0-105.0); MEAN CORPUSCULAR HEMOGLOBIN 29.7 pg (25.0-35.0); MEAN CORPUSCULAR HGB CONC 34.4 g/dl (31.0-37.0); MEAN PLATELET VOLUME 9.7 fl (7.0-11.0); RED CELL DISTRIBUTION WIDTH 14.2 % (11.5-14.5); WHITE BLOOD COUNT 4.7 10^3/ul (4.5-11.0)
[2016-12-13 08:12] LABS: CALCIUM 7.2 mg/dL (8.4-10.5); CARBON DIOXIDE 24 mmol/L (21-33); CHLORIDE 109 mmol/L (98-107); GFR AFRICAN-AMERICAN > 60; GLUCOSE,RANDOM 149 mg/dL (70-110); POTASSIUM 3.2 mmol/L (3.6-5.0); SODIUM 138 mmol/L (132-148)
[2016-12-13 08:13] LABS: BLOOD UREA NITROGEN < 2 mg/dL (7-21)
[2016-12-13] MEDS: Amylase/Lipase/Protease 5,000 U ECC PO SCH ×2 (08:19→11:40)
[2016-12-13] MEDS ORDERED: Potassium Chloride 40 mEq/30 ml LIQ UD PO ONE (08:44)
[2016-12-13] MEDS: Insulin Reg-MEDIUM-Coverage SC SCH ×2 (08:50→11:40)
[2016-12-13] MEDS: Sodium Chloride 0.9% 1,000 ML IV SCH (09:05)
--- NOTE | 2016-12-13 12:23 | CP.PCM.DIS ---
<Bill Grimm - Last Filed: 12/13/16 14:19> Provider - Provider Date of Admission: 12/12/16 21:19 Attending physician: Gomez Coleman MD Primary care physician: Juan Dao MD Consults: GI - Dr. Hook Time Spent in preparation of Discharge (in minutes): 45 Diagnosis - Discharge Diagnosis (1) Chronic pancreatitis Status: Chronic Priority: Medium Hospital Course - Lab Results Lab Results: Most Recent Lab Values WBC 4.7 10^3/ul (4.5-11.0) D 12/13/16 07:57 RBC 3.30 10^6/uL (3.5-6.1) L 12/13/16 07:57 Hgb 9.8 gm/dL (14.0-18.0) L 12/13/16 07:57 Hct 28.5 % (42.0-52.0) L 12/13/16 07:57 MCV 86.4 fL (80.0-105.0) 12/13/16 07:57 MCH 29.7 pg (25.0-35.0) 12/13/16 07:57 MCHC 34.4 g/dl (31.0-37.0) 12/13/16 07:57 RDW 14.2 % (11.5-14.5) 12/13/16 07:57 Plt Count 207 10^3/uL (120.0-450.0) 12/13/16 07:57 MPV 9.7 fl (7.0-11.0) 12/13/16 07:57 Gran % 51.9 % (50.0-68.0) 12/11/16 12:25 Lymph % (Auto) 43.3 % (22.0-35.0) H 12/11/16 12:25 Schley % (Auto) 3.7 % (1.0-6.0) 12/11/16 12:25 Eos % (Auto) 0.8 % (1.5-5.0) L 12/11/16 12:25 Baso % (Auto) 0.3 % (0.0-3.0) 12/11/16 12:25 Gran # 1.98 (1.4-6.5) 12/11/16 12:25 Lymph # 1.7 (1.2-3.4) 12/11/16 12:25 Schley # 0.1 (0.1-0.6) 12/11/16 12:25 Eos # 0.0 (0.0-0.7) 12/11/16 12:25 Baso # 0.01 K/mm3 (0.0-2.0) 12/11/16 12:25 Sodium 138 mmol/L (132-148) 12/13/16 07:57 Potassium 3.2 mmol/L (3.6-5.0) L 12/13/16 07:57 Chloride 109 mmol/L (98-107) H 12/13/16 07:57 Carbon Dioxide 24 mmol/L (21-33) 12/13/16 07:57 Anion Gap 8 (10-20) L 12/13/16 07:57 BUN < 2 mg/dL (7-21) L 12/13/16 07:57 Creatinine 0.5 mg/dL (0.5-1.4) 12/13/16 07:57 Est GFR ( Amer) > 60 12/13/16 07:57 Est GFR (Non-Af Amer) > 60 12/13/16 07:57 POC Glucose (mg/dL) 340 mg/dL (65-110) H 12/12/16 21:49 Random Glucose 149 mg/dL (70-110) H 12/13/16 07:57 Hemoglobin A1c 12.5 % (4.2-6.5) H 12/11/16 12:25 Calcium 7.2 mg/dL (8.4-10.5) L 12/13/16 07:57 Total Bilirubin 1.5 mg/dL (0.2-1.3) H 12/11/16 12:25 AST 21 U/L (15-59) 12/11/16 12:25 ALT 16 U/L (7-56) 12/11/16 12:25 Alkaline Phosphatase 115 U/L (38-133) 12/11/16 12:25 Total Protein 5.8 g/dL (5.8-8.3) 12/11/16 12:25 Albumin 3.0 g/dL (3.0-4.8) 12/11/16 12:25 Globulin 2.8 gm/dL 12/11/16 12:25 Albumin/Globulin Ratio 1.1 (1.1-1.8) 12/11/16 12:25 Triglycerides 57 mg/dL (35-160) 12/11/16 12:25 Cholesterol 115 mg/dL (130-200) L 12/11/16 12:25 LDL Cholesterol Direct 54 mg/dL (0-129) 12/11/16 12:25 HDL Cholesterol 40 mg/dL (29-60) 12/11/16 12:25 Lipase < 10 U/L (23-300) L 12/11/16 12:25 Urine Color Yellow (YELLOW) 12/11/16 17:15 Urine Appearance Clear (CLEAR) 12/11/16 17:15 Urine pH 6.0 (4.7-8.0) 12/11/16 17:15 Ur Specific [place] 1.025 (1.005-1.035) 12/11/16 17:15 Urine Protein Negative mg/dL (<30 mg/dL) 12/11/16 17:15 Urine Glucose (UA) 100 mg/dL (NEGATIVE) H 12/11/16 17:15 Urine Ketones Trace mg/dL (NEGATIVE) H 12/11/16 17:15 Urine Blood Negative (NEGATIVE) 12/11/16 17:15 Urine Nitrate Negative (NEGATIVE) 12/11/16 17:15 Urine Bilirubin Negative (NEGATIVE) 12/11/16 17:15 Urine Urobilinogen 0.2 E.U./dL (<1 E.U./dL) 12/11/16 17:15 Ur Leukocyte Esterase Negative [place]/uL (NEGATIVE) 12/11/16 17:15 Alcohol, Quantitative < 10 mg/dL (0-10) 12/11/16 12:25 - Hospital Course Hospital Course: 31 y/o M with PMH of Chronic pancreatitis presented with abdominal pain on . Patient states that he has had multiple episodes such as this in the past. He was diagnosed with pancreatitis when he was 15 years old. He has had multiple episodes of severe epigastric pain since then. Last pancreatitis flare was 3 months ago. He states that current flare has been ongoing for the past 3 days. Pain is severe, sharp, located in the epigastric region and radiates throughout the entire abdomen. No exacerbating or remitting factors reported. He states that he was evaluated in the [place] ED a few days ago and obtained a CT scan of the abdomen at that time. CT showed nonspecific mural thickening of multiple small loops of bowel on left side of abdomen in addition to 1.3 cm of low attenuation lesion in left hepatic lobe. No acute pancreatitis seen on CT. He states that he has been having nausea, non-bilious non bloody vomiting, multiple episodes over the past 2 days. He also has had multiple episodes of diarrhea over the past 2 days, denies any bloody stools. Pt admitted for chronic pancreatitis. Pt initially placed on IVF and pancreatic enzymes, which he said he takes at home. Pt had improvement of symptoms, although he states he chronically has abdominal pain. Pt was evaluated by GI, Dr. Hook, but was uncooperative with exam and discussing prior GI workup and studies. Pt will be discharged with pancreatic enzymes and will follow up with PMD and GI in 1 week. Discharge Exam - Head Exam Head Exam: ATRAUMATIC, NORMAL INSPECTION, NORMOCEPHALIC - ENT Exam ENT Exam: Mucous Membranes Moist, Normal Exam - Respiratory Exam Respiratory Exam: NORMAL BREATHING PATTERN, UNREMARKABLE - Cardiovascular Exam Cardiovascular Exam: RRR, +S1, +S2 - GI/Abdominal Exam GI & Abdominal Exam: Normal Bowel Sounds, Soft, Tenderness (Epigastric) - Extremities Exam Extremities exam: normal inspection - Neurological Exam Neurological exam: Alert, CN II-XII Intact, Oriented x3 - Psychiatric Exam Psychiatric exam: Normal Affect, Normal Mood - Skin Skin Exam: Intact, Normal Color, Warm Discharge Plan - Discharge Medications Prescriptions: Insulin Aspart, Recombinant [Novolog] See Protocol IM DAILY #10 unit Amylase/Lipase/Protease [Pancrease 14242 U-5000 [id number] U] 1 ecc PO DAILY #10 ecc Amylase/Lipase/Protease [Pancrease 27464 U-5000 U-[id number] U] 1 u PO AC #10 ecc - Follow Up Plan Condition: GOOD Disposition: HOME/ ROUTINE Instructions: Pancreatitis (DC) Additional Instructions: Follow up with PMD in 1 week Follow up with GI in 1 week Return to hospital if further worsening of symptoms Referrals: Juan Dao MD [Primary Care Provider] - <Gomez Coleman - Last Filed: 12/13/16 14:53> Provider - Provider Date of Admission: 12/12/16 21:19 Attending physician: Gomez Coleman MD Primary care physician: Juan Dao MD Hospital Course - Lab Results Lab Results: Most Recent Lab Values WBC 4.7 10^3/ul (4.5-11.0) D 12/13/16 07:57 RBC 3.30 10^6/uL (3.5-6.1) L 12/13/16 07:57 Hgb 9.8 gm/dL (14.0-18.0) L 12/13/16 07:57 Hct 28.5 % (42.0-52.0) L 12/13/16 07:57 MCV 86.4 fL (80.0-105.0) 12/13/16 07:57 MCH 29.7 pg (25.0-35.0) 12/13/16 07:57 MCHC 34.4 g/dl (31.0-37.0) 12/13/16 07:57 RDW 14.2 % (11.5-14.5) 12/13/16 07:57 Plt Count 207 10^3/uL (120.0-450.0) 12/13/16 07:57 MPV 9.7 fl (7.0-11.0) 12/13/16 07:57 Gran % 51.9 % (50.0-68.0) 12/11/16 12:25 Lymph % (Auto) 43.3 % (22.0-35.0) H 12/11/16 12:25 Schley % (Auto) 3.7 % (1.0-6.0) 12/11/16 12:25 Eos % (Auto) 0.8 % (1.5-5.0) L 12/11/16 12:25 Baso % (Auto) 0.3 % (0.0-3.0) 12/11/16 12:25 Gran # 1.98 (1.4-6.5) 12/11/16 12:25 Lymph # 1.7 (1.2-3.4) 12/11/16 12:25 Schley # 0.1 (0.1-0.6) 12/11/16 12:25 Eos # 0.0 (0.0-0.7) 12/11/16 12:25 Baso # 0.01 K/mm3 (0.0-2.0) 12/11/16 12:25 Sodium 138 mmol/L (132-148) 12/13/16 07:57 Potassium 3.2 mmol/L (3.6-5.0) L 12/13/16 07:57 Chloride 109 mmol/L (98-107) H 12/13/16 07:57 Carbon Dioxide 24 mmol/L (21-33) 12/13/16 07:57 Anion Gap 8 (10-20) L 12/13/16 07:57 BUN < 2 mg/dL (7-21) L 12/13/16 07:57 Creatinine 0.5 mg/dL (0.5-1.4) 12/13/16 07:57 Est GFR ( Amer) > 60 12/13/16 07:57 Est GFR (Non-Af Amer) > 60 12/13/16 07:57 POC Glucose (mg/dL) 340 mg/dL (65-110) H 12/12/16 21:49 Random Glucose 149 mg/dL (70-110) H 12/13/16 07:57 Hemoglobin A1c 12.5 % (4.2-6.5) H 12/11/16 12:25 Calcium 7.2 mg/dL (8.4-10.5) L 12/13/16 07:57 Total Bilirubin 1.5 mg/dL (0.2-1.3) H 12/11/16 12:25 AST 21 U/L (15-59) 12/11/16 12:25 ALT 16 U/L (7-56) 12/11/16 12:25 Alkaline Phosphatase 115 U/L (38-133) 12/11/16 12:25 Total Protein 5.8 g/dL (5.8-8.3) 12/11/16 12:25 Albumin 3.0 g/dL (3.0-4.8) 12/11/16 12:25 Globulin 2.8 gm/dL 12/11/16 12:25 Albumin/Globulin Ratio 1.1 (1.1-1.8) 12/11/16 12:25 Triglycerides 57 mg/dL (35-160) 12/11/16 12:25 Cholesterol 115 mg/dL (130-200) L 12/11/16 12:25 LDL Cholesterol Direct 54 mg/dL (0-129) 12/11/16 12:25 HDL Cholesterol 40 mg/dL (29-60) 12/11/16 12:25 Lipase < 10 U/L (23-300) L 12/11/16 12:25 Urine Color Yellow (YELLOW) 12/11/16 17:15 Urine Appearance Clear (CLEAR) 12/11/16 17:15 Urine pH 6.0 (4.7-8.0) 12/11/16 17:15 Ur Specific Louisa 1.025 (1.005-1.035) 12/11/16 17:15 Urine Protein Negative mg/dL (<30 mg/dL) 12/11/16 17:15 Urine Glucose (UA) 100 mg/dL (NEGATIVE) H 12/11/16 17:15 Urine Ketones Trace mg/dL (NEGATIVE) H 12/11/16 17:15 Urine Blood Negative (NEGATIVE) 12/11/16 17:15 Urine Nitrate Negative (NEGATIVE) 12/11/16 17:15 Urine Bilirubin Negative (NEGATIVE) 12/11/16 17:15 Urine Urobilinogen 0.2 E.U./dL (<1 E.U./dL) 12/11/16 17:15 Ur Leukocyte Esterase Negative [place]/uL (NEGATIVE) 12/11/16 17:15 Alcohol, Quantitative < 10 mg/dL (0-10) 12/11/16 12:25 Attending/Attestation - Attestation I have personally seen and examined this patient.: Yes I have fully participated in the care of the patient.: Yes I have reviewed all pertinent clinical information, including history, physical exam and plan: Yes Notes (Text): 12/13/16 14:48 31 year old male with past medical history of chronic pancreatitis and diabetes who presented with complaint of abdominal pain. He was seen in ER several times this week with similar presentation but discharged when he reported his symptoms had improved. He had a recent CT abd/pelvis which showed nonspecific enteritis and chronic pancreatitis. He was admitted for intractable abdominal pain with ?nausea/vomiting (not witnessed). He was seen by GI who recommended pancreatic enzymes and advancement of diet as tolerated. He was not cooperative at times with examination, history and blood work. He exhibited pain medication seeking behavior asking only for iv dilaudid and iv benadryl. His diet was advanced to liquids and then to soft which is tolerating without vomiting. Reports his "pain is better". Had hypokalemia which was repleted prior to discharge. He will be discharged home today to follow up with his pmd. 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 Counselled on risks of opioid abuse. Continue with insulin for diabetes. Gomez Coleman MD Hospitalist.
== END 2016-12-13 16:54 | disposition home or self-care (01) | DRG 439 ==
LOC: ED 11:30 → ERH 14:26 → 5RSO 17:07 → OBSVTOIN 12-12 21:19
PROVIDERS: ADMIT Internal Medicine; ATTEND Internal Medicine
DX: K86.1 Other chronic pancreatitis (principal); R64 Cachexia; Z68.1 Body mass index [BMI] 19.9 or less, adult; K52.9 Noninfective gastroenteritis and colitis, unspecified; E87.6 Hypokalemia; E10.9 Type 1 diabetes mellitus without complications; F11.10 Opioid abuse, uncomplicated; Z76.5 Malingerer [conscious simulation]

== ENCOUNTER 2017-01-03 05:32 | Emergency (ER) | payer MEDICARE, OTHER ==
[2017-01-03 05:32] VITALS: BMI 18.3
--- NOTE | 2017-01-03 05:56 | ED PDOC ---
Arrival/HPI - General Chief Complaint: Abdominal Pain Time Seen by Provider: 01/03/17 05:44 Historian: Patient - History of Present Illness Narrative History of Present Illness (Text): 01/03/17 05:54 Ulises Germain is a 31 year old male, whose past medical history includes chronic pancreatitis, who presents to the emergency department complaining of worsening diffuse abdominal pain radiating to his back since 15:30 yesterday. Patient also reports associated nausea, vomiting,, and diffuse pruritus. Patient denies any fever, chills, chest pain, shortness of breath, urinary symptoms, neck pain , headache, dizziness, or any other complaints. Time/Duration: Other (15:30 yesterday) Symptom Onset: Gradual Symptom Course: Unchanged Activities at Onset: Rest, Light Context: Home Past Medical History - Provider Review Nursing Documentation Reviewed: Yes - Infectious Disease Hx of Infectious Diseases: None - Cardiac Hx Cardiac Disorders: No - Pulmonary Hx Respiratory Disorders: No - Neurological Hx Neurological Disorder: No - HEENT Hx HEENT Disorder: No - Renal Hx Renal Disorder: No - Endocrine/Metabolic Hx Endocrine Disorders: Yes Hx Diabetes Mellitus Type 1: Yes - Hematological/Oncological Hx Blood Disorders: No - Integumentary Hx Dermatological Disorder: Yes (GENERALIZED SKIN DRYNESS,PUSTULES WITH ITCHING, TATTOOS) - Musculoskeletal/Rheumatological Hx Musculoskeletal Disorders: No Hx Falls: No - Gastrointestinal Hx Gastrointestinal Disorders: Yes Hx Pancreatitis: Yes (CHRONIC) - Genitourinary/Gynecological Hx Genitourinary Disorders: No - Psychiatric Hx Psychophysiologic Disorder: No Hx Substance Use: No - Surgical History Hx Cholecystectomy: Yes Family/Social History - Physician Review Nursing Documentation Reviewed: Yes Family/Social History: No Known Family HX Smoking Status: Never Smoked Hx Alcohol Use: No Hx Substance Use: No Allergies/Home Meds Allergies/Adverse Reactions: Allergies famotidine [From Pepcid] Allergy (Verified 12/11/16 21:17) NAUSEA ketorolac tromethamine [From Toradol] Allergy (Verified 12/11/16 21:17) NAUSEA tramadol Allergy (Verified 12/11/16 21:17) NAUSEA Review of Systems - Physician Review All systems were reviewed & negative as marked: Yes - Review of Systems Constitutional: Normal. absent: Fevers Eyes: Normal ENT: Normal Respiratory: Normal. absent: SOB, Cough Cardiovascular: Normal. absent: Chest Pain Gastrointestinal: Abdominal Pain, Nausea, Vomiting. absent: Diarrhea Genitourinary Male: Normal. absent: Dysuria, Frequency, Hematuria, Urinary Output Changes Musculoskeletal: Normal. absent: Back Pain, Neck Pain Skin: Normal. absent: Rash Neurological: Normal. absent: Headache, Dizziness Endocrine: Normal Hemo/Lymphatic: Normal Psychiatric: Normal Physical Exam Vital Signs Reviewed: Yes Vital Signs Temp Pulse Resp BP Pulse Ox 01/03/17 05:55 98.2 F 99 H 16 98/49 L 99 Temperature: Afebrile Blood Pressure: Normal Pulse: Regular Respiratory Rate: Normal Appearance: Positive for: Well-Appearing, Non-Toxic, Comfortable Pain Distress: None Mental Status: Positive for: Alert and Oriented X 3 - Systems Exam Head: Present: Atraumatic, Normocephalic Pupils: Present: PERRL Extroacular Muscles: Present: EOMI Conjunctiva: Present: Normal Mouth: Present: Moist Mucous Membranes Neck: Present: Normal Range of Motion Respiratory/Chest: Present: Clear to Auscultation, Good Air Exchange. No: Respiratory Distress, Accessory Muscle Use Cardiovascular: Present: Regular Rate and Rhythm, Normal S1, S2. No: Murmurs Abdomen: Present: Tenderness (Diffuse abdominal pain), Normal Bowel Sounds. No : Distention, Peritoneal Signs Back: Present: Normal Inspection Upper Extremity: Present: Normal Inspection. No: Cyanosis, Edema Lower Extremity: Present: Normal Inspection. No: Edema Neurological: Present: GCS=15, CN II-XII Intact, Speech Normal Skin: Present: Warm, Dry, Normal Color. No: Rashes Psychiatric: Present: Alert, Oriented x 3, Normal Insight, Normal Concentration Medical Decision Making ED Course and Treatment: 01/03/17 05:55 Impression: 31 year old male complaining of diffuse abdominal pain, nausea and vomiting since 15:30 yesterday. Differential Diagnosis included but are not limited to: pancreatitis Plan: -- Labs, lipase -- Urinalysis -- IV fluids -- Zofran -- Benadryl -- Morphine -- Reassess and disposition Prior Visits: Notes and results from previous visits were reviewed. On 12/11/16, pt was seen in the emergency department for abdominal pain, nausea , vomiting, and itchiness. Pt was admitted to the hospital for further evaluation. Progress Notes: - Lab Interpretations Lab Results: 01/03/17 06:28 Lab Results 01/03/17 06:28: WBC 5.4, RBC 3.63, Hgb 10.8 L, Hct 32.0 L, MCV 88.2, MCH 29.8, MCHC 33.8, RDW 13.0, Plt Count 246, MPV 10.0 - RAD Interpretation Radiology Orders: 01/03/17 06:26 ABD & PELVIS IV CONTRAST ONLY [CT] Stat - Medication Orders Current Medication Orders: Sodium Chloride (Sodium Chloride 0.9%) 1,000 mls @ 999 mls/hr IV .Q1H1M STA Stop: 01/03/17 06:59 Last Admin: 01/03/17 06:34 Dose: 999 MLS/HR eMAR Start Stop Document 01/03/17 06:34 EKEOO (Rec: 01/03/17 06:34 EKEOO [id number]) Intravenous Solution Start Date 01/03/17 Start Time 06:34 Discontinued Medications Diphenhydramine HCl (Benadryl) 25 mg IVP ONCE ONE Stop: 01/03/17 06:01 Last Admin: 01/03/17 06:33 Dose: 25 MG IVP Administration Document 01/03/17 06:33 EKEOO (Rec: 01/03/17 06:34 EKEOO [id number]) Charges for Administration # of IVP Administrations 1 Morphine Sulfate (Morphine) 2 mg IVP STAT STA Stop: 01/03/17 06:01 Last Admin: 01/03/17 06:34 Dose: 2 MG MAR Pain Assessment Document 01/03/17 06:34 EKEOO (Rec: 01/03/17 06:34 EKEOO [id number]) Pain Reassessment Is this a pain reassessment? No Sleep Is patient sleeping during reassessment? No Presence of Pain Presence of Pain Yes IVP Administration Document 01/03/17 06:34 EKEOO (Rec: 01/03/17 06:34 EKEOO [id number]) Charges for Administration # of IVP Administrations 1 Ondansetron HCl (Zofran Inj) 4 mg IVP ONCE ONE Stop: 01/03/17 06:01 Last Admin: 01/03/17 06:33 Dose: 4 MG IVP Administration Document 01/03/17 06:33 EKEOO (Rec: 01/03/17 06:33 EKEOO [id number]) Charges for Administration # of IVP Administrations 1 - Transfer of Care Patient signed out to Dr:: Leonora Pending Labs:: Labs/CT Abd/pelvis/reassess/final disposition - Scribe Statement The provider has reviewed the documentation as recorded by the Ivoneibe Martha Blevins Provider Attestation: All medical record entries made by the Scribe were at my direction and personally dictated by me. I have reviewed the chart and agree that the record accurately reflects my personal performance of the history, physical exam, medical decision making, and the department course for this patient. I have also personally directed, reviewed, and agree with the discharge instructions and disposition. Disposition/Present on Arrival - Present on Arrival Any Indicators Present on Arrival: No History of DVT/PE: No History of Uncontrolled Diabetes: No Urinary Catheter: No History of Decub. Ulcer: No History Surgical Site Infection Following: None - Disposition Have Diagnosis and Disposition been Completed?: No Diagnosis: Abdominal pain Disposition Time: 07:00 Patient Problems: Current Active Problems Problem Status Diagnosed Abdominal pain Acute Chronic pancreatitis Chronic Condition: STABLE Referrals: Juan Dao MD [Primary Care Provider] - Follow up with primary
[2017-01-03 05:58] VITALS: RESP 16; TEMP 98.2; O2SAT 99
[2017-01-03] MEDS ORDERED: Sodium Chloride 0.9% 1,000 ML IV STA (05:59)
[2017-01-03] MEDS ORDERED: DiphenhydrAMINE 50 mg/ml Inj IVP ONE ×3 (06:00→09:23)
[2017-01-03] MEDS ORDERED: Morphine 2 mg/ml ISec IVP STA ×3 (06:00→09:23)
[2017-01-03 06:33] LABS: MEAN CELL VOLUME 88.2 fL (80.0-105.0); MEAN CORPUSCULAR HEMOGLOBIN 29.8 pg (25.0-35.0); MEAN CORPUSCULAR HGB CONC 33.8 g/dl (31.0-37.0); WHITE BLOOD COUNT 5.4 10^3/ul (4.5-11.0)
[2017-01-03 06:54] LABS: AST/SGOT 37 U/L (15-59); BILIRUBIN,TOTAL 1.1 mg/dL (0.2-1.3); BLOOD UREA NITROGEN < 2 mg/dL (7-21); CALCIUM 8.1 mg/dL (8.4-10.5); CARBON DIOXIDE 28 mmol/L (21-33); CHLORIDE 105 mmol/L (98-107); GFR AFRICAN-AMERICAN > 60; GLUCOSE,RANDOM 113 mg/dL (70-110); SODIUM 137 mmol/L (132-148); TOTAL PROTEIN 5.5 g/dL (5.8-8.3)
[2017-01-03 06:55] LABS: ALKALINE PHOSPHATASE 111 U/L (38-133); ALT/SGPT 38 U/L (7-56); LIPASE < 10 U/L (23-300)
--- NOTE | 2017-01-03 07:00 | ED PDOC ---
Physical Exam Vital Signs Temp Pulse Resp BP Pulse Ox 01/03/17 09:00 101 H 16 122/74 99 01/03/17 07:09 87 16 133/72 99 01/03/17 05:55 98.2 F 99 H 16 98/49 L 99 Medical Decision Making ED Course and Treatment: 01/03/17 07:00 Patient signed out to me by Dr. Lim pending labs, CT Abd/pelvis, reassessment, final disposition. PROCEDURE: CT Abdomen and Pelvis with contrast Bereavement Counselor : Rm Gerardo MD IMPRESSION: No acute intra-abdominal findings 01/03/17 09:24 Patient reports persistent epigastric pain radiating to his back. His allergies were reviewed. He states all listed allergies give him an "itchy rash." CT report reviewed. Patient is afebrile. Denies chest pain or shortness of breath. He states his PMD is Dr. Dao but says he has not seen him "for several months because he is on vacation" Patient states he sees a pain management physician who he has an appointment with next week. Additional pain medication ordered and pain will be reassessed. 01/03/17 10:42 In laymen's terms I discussed ct findings, laboratory results. I discussed with him the limitations of CT as well as labs. I discussed with him treatment plan of serial exams and reassessment after medication. He expressed understanding of this treatment plan. Patient eloped from ED at 10:40 prior to discharge. He was found to be alert, oriented, ambulating throuhout the ED with steady gait speaking to staff members. Patient was re-inforced that he was being still evaluated, patient eloped from the ED. - Lab Interpretations Lab Results: 01/03/17 06:28 01/03/17 06:28 Lab Results 01/03/17 08:40: Urine Color Yellow, Urine Appearance Clear, Urine pH 6.0, Ur Specific [place] 1.015, Urine Protein Negative, Urine Glucose (UA) 100 H, Urine Ketones Trace H, Urine Blood Negative, Urine Nitrate Negative, Urine Bilirubin Negative, Urine Urobilinogen 0.2, Ur Leukocyte Esterase Negative 01/03/17 06:28: WBC 5.4, RBC 3.63, Hgb 10.8 L, Hct 32.0 L, MCV 88.2, MCH 29.8, MCHC 33.8, RDW 13.0, Plt Count 246, MPV 10.0, Sodium 137, Potassium 4.0, Chloride 105, Carbon Dioxide 28, Anion Gap 8 L, BUN < 2 L, Creatinine 0.5, Est GFR ( Amer) > 60, Est GFR (Non-Af Amer) > 60, Random Glucose 113 H, Calcium 8.1 L, Total Bilirubin 1.1, AST 37, ALT 38, Alkaline Phosphatase 111, Total Protein 5.5 L, Albumin 2.7 L, Globulin 2.8, Albumin/Globulin Ratio 1.0 L, Lipase < 10 L - RAD Interpretation Radiology Orders: 01/03/17 06:26 ABD & PELVIS IV CONTRAST ONLY [CT] Stat - Medication Orders Current Medication Orders: Discontinued Medications Diphenhydramine HCl (Benadryl) 25 mg IVP ONCE ONE Stop: 01/03/17 06:01 Last Admin: 01/03/17 06:33 Dose: 25 MG IVP Administration Document 01/03/17 06:33 EKEOO (Rec: 01/03/17 06:34 EKEOO [id number]) Charges for Administration # of IVP Administrations 1 Diphenhydramine HCl (Benadryl) 25 mg IVP ONCE ONE Stop: 01/03/17 08:01 Last Admin: 01/03/17 08:03 Dose: 25 MG IVP Administration Document 01/03/17 08:03 [facility] [place] (Rec: 01/03/17 08:04 [facility] [place] [id number]) Charges for Administration # of IVP Administrations 1 Diphenhydramine HCl (Benadryl) 25 mg IVP ONCE ONE Stop: 01/03/17 09:24 Last Admin: 01/03/17 09:36 Dose: 25 MG IVP Administration Document 01/03/17 09:36 [employer] (Rec: 01/03/17 09:36 [employer] [id number]) Charges for Administration # of IVP Administrations 3 Sodium Chloride (Sodium Chloride 0.9%) 1,000 mls @ 999 mls/hr IV .Q1H1M STA Stop: 01/03/17 06:59 Last Admin: 01/03/17 06:34 Dose: 999 MLS/HR eMAR Start Stop Document 01/03/17 06:34 EKEOO (Rec: 01/03/17 06:34 EKEOO [id number]) Intravenous Solution Start Date 01/03/17 Start Time 06:34 Iohexol (Omnipaque 350 100 Ml) Confirm Administered Dose 350 mg .ROUTE .STK-MED ONE Stop: 01/03/17 08:06 Morphine Sulfate (Morphine) 2 mg IVP STAT STA Stop: 01/03/17 06:01 Last Admin: 01/03/17 06:34 Dose: 2 MG MAR Pain Assessment Document 01/03/17 06:34 EKEOO (Rec: 01/03/17 06:34 EKEOO [id number]) Pain Reassessment Is this a pain reassessment? No Sleep Is patient sleeping during reassessment? No Presence of Pain Presence of Pain Yes IVP Administration Document 01/03/17 06:34 EKEOO (Rec: 01/03/17 06:34 EKEOO [id number]) Charges for Administration # of IVP Administrations 1 Morphine Sulfate (Morphine) 2 mg IVP STAT STA Stop: 01/03/17 07:52 Last Admin: 01/03/17 07:59 Dose: 2 MG MAR Pain Assessment Document 01/03/17 07:59 [facility] (Rec: 01/03/17 08:00 [facility] [id number]) Pain Reassessment Is this a pain reassessment? Yes Sleep Is patient sleeping during reassessment? No Presence of Pain Presence of Pain Yes Pain Scale Used Pain Scale Used Numeric Location Pain Location Body Site Back Description Intensity of Pain at present 7 IVP Administration Document 01/03/17 07:59 [facility] (Rec: 01/03/17 08:00 [facility] [id number]) Charges for Administration # of IVP Administrations 1 Morphine Sulfate (Morphine) 2 mg IVP STAT STA Stop: 01/03/17 09:24 Last Admin: 01/03/17 09:35 Dose: 2 MG MAR Pain Assessment Document 01/03/17 09:35 [employer] (Rec: 01/03/17 09:36 [employer] [id number]) Pain Reassessment Is this a pain reassessment? No IVP Administration Document 01/03/17 09:35 [employer] (Rec: 01/03/17 09:36 [employer] [id number]) Charges for Administration # of IVP Administrations 3 Ondansetron HCl (Zofran Inj) 4 mg IVP ONCE ONE Stop: 01/03/17 06:01 Last Admin: 01/03/17 06:33 Dose: 4 MG IVP Administration Document 01/03/17 06:33 [facility] (Rec: 01/03/17 06:33 EKEOO [id number]) Charges for Administration # of IVP Administrations 1 Disposition/Present on Arrival - Present on Arrival Any Indicators Present on Arrival: No History of DVT/PE: No History of Uncontrolled Diabetes: No Urinary Catheter: No History of Decub. Ulcer: No History Surgical Site Infection Following: None - Disposition Have Diagnosis and Disposition been Completed?: Yes Diagnosis: Abdominal pain Disposition: ELOPEMENT - ER ONLY Disposition Time: 10:45 Patient Plan: Discharge Patient Problems: Current Active Problems Problem Status Diagnosed Abdominal pain Acute Chronic pancreatitis Chronic Condition: STABLE Referrals: Juan Dao MD [Primary Care Provider] - Follow up with primary
[2017-01-03] MEDS ORDERED: Iohexol 350 MG/100 ML VIAL ONE (08:05)
--- NOTE | 2017-01-03 08:44 | CT ---
PROCEDURE: CT Abdomen and Pelvis with contrast HISTORY: abdominal pain COMPARISON: None. TECHNIQUE: Contrast dose: 100 cc of Omni 350 Radiation dose: Total exam DLP = 190 mGy-cm. This CT exam was performed using one or more of the following dose reduction techniques: Automated exposure control, adjustment of the mA and/or kV according to patient size, and/or use of iterative reconstruction technique. FINDINGS: LOWER THORAX: Unremarkable. LIVER: Unremarkable. No gross lesion or ductal dilatation. There is a nonspecific hypodense lesion in the liver measuring 12 mm. Mild fatty infiltration GALLBLADDER AND BILE DUCTS: Gallbladder removed PANCREAS: Severe atrophy and diffuse coarse calcifications consistent with chronic pancreatitis SPLEEN: Unremarkable. ADRENALS: Unremarkable. No mass. KIDNEYS AND URETERS: Unremarkable. No hydronephrosis. No solid mass. VASCULATURE: Unremarkable. No aortic aneurysm. BOWEL: Unremarkable. No obstruction. No gross mural thickening. Constipation APPENDIX: Normal appendix. PERITONEUM: Unremarkable. No free fluid. No free air. LYMPH NODES: Unremarkable. No enlarged lymph nodes. BLADDER: Unremarkable. REPRODUCTIVE: Unremarkable. BONES: No acute fracture. OTHER FINDINGS: None. IMPRESSION: No acute intra-abdominal findings
[2017-01-03 09:07] LABS: URINE BILIRUBIN NEGATIVE (NEGATIVE); URINE BLOOD NEGATIVE (NEGATIVE); URINE GLUCOSE (UA) 100 mg/dL (NEGATIVE); URINE KETONE TRACE mg/dL (NEGATIVE); URINE LEUKOCYTE ESTERASE NEGATIVE Leu/uL (NEGATIVE); URINE PROTEIN NEGATIVE mg/dL (<30 mg/dL); URINE UROBILINOGEN 0.2 E.U./dL (<1 E.U./dL)
[2017-01-03 09:13] VITALS: BP 122/74; PULSE 101
[2017-01-03 09:13] LABS: URINE APPEARANCE CLEAR (CLEAR); URINE COLOR YELLOW (YELLOW)
== END 2017-01-03 10:49 | disposition left against medical advice (07) ==
LOC: ED 05:32 → MERGE 05:32 → ED 10:49
DX: R10.9 Unspecified abdominal pain (principal)
CPT/HCPCS: 74177; 80053; 81003; 83690; 85027; 96374; 96375; 96376; 99283; J1200; J2270; J2405; J7040; Q9967

== ENCOUNTER 2017-03-08 12:26 | Emergency (ER) | payer MEDICARE, OTHER ==
[2017-03-08 12:30] VITALS: RESP 18; TEMP 98.2; O2SAT 100; BMI 20.3
[2017-03-08] MEDS ORDERED: Sodium Chloride 0.9% 1,000 ML IV STA (13:18)
--- NOTE | 2017-03-08 13:37 | ED PDOC ---
Arrival/HPI - General Chief Complaint: Abdominal Pain Time Seen by Provider: 03/08/17 12:37 - History of Present Illness Narrative History of Present Illness (Text): 03/08/17 13:21 31-year-old male with abdominal discomfort, accompanied by back pain, nausea, nonbilious nonbloody vomiting, watery nonbloody diarrhea. Patient states that he has a history of pancreatitis and this feels identical to his previous pancreatitis symptoms. Denies any cp/sob/jarrell, denies f/c, no other complaints. Past Medical History - Provider Review Nursing Documentation Reviewed: Yes - Infectious Disease Hx of Infectious Diseases: None - Tetanus Immunization Tetanus Immunization: Unknown - Reproductive Currently : No - Cardiac Hx Cardiac Disorders: No - Pulmonary Hx Respiratory Disorders: No - Neurological Hx Neurological Disorder: No - HEENT Hx HEENT Disorder: No - Renal Hx Renal Disorder: No - Endocrine/Metabolic Hx Endocrine Disorders: Yes Hx Diabetes Mellitus Type 1: Yes - Hematological/Oncological Hx Blood Disorders: No - Integumentary Hx Dermatological Disorder: Yes (GENERALIZED SKIN DRYNESS,PUSTULES WITH ITCHING, TATTOOS) - Musculoskeletal/Rheumatological Hx Musculoskeletal Disorders: No Hx Falls: No - Gastrointestinal Hx Gastrointestinal Disorders: Yes Hx Pancreatitis: Yes (CHRONIC) - Genitourinary/Gynecological Hx Genitourinary Disorders: No - Psychiatric Hx Psychophysiologic Disorder: No Hx Substance Use: No - Surgical History Hx Cholecystectomy: Yes - Anesthesia Hx Anesthesia: Yes Hx Anesthesia Reactions: No - Suicidal Assessment Feels Threatened In Home Enviroment: No Family/Social History Family/Social History: Unknown Family HX Smoking Status: Never Smoked Hx Alcohol Use: No Hx Substance Use: No Allergies/Home Meds Allergies/Adverse Reactions: Allergies acetaminophen [From Tylenol] Allergy (Verified 03/08/17 12:47) .unknown famotidine [From Pepcid] Allergy (Verified 03/08/17 12:47) .unknown ketorolac tromethamine [From Toradol] Allergy (Verified 03/08/17 12:47) RASH tramadol Allergy (Verified 03/08/17 12:47) RASH "rash" as per patient Home Medications: Home Meds Medication Instructions Recorded Confirmed Insulin Aspart/Insulin Aspar 10 unit SQ TID 11/03/15 03/08/17 [Novolog Mix 70/30 (70/30 units/ml)] Physical Exam - Physical Exam Narrative Physical Exam (Text): 03/08/17 13:40 - Review of Systems Constitutional: Normal. absent: Fatigue, Weight Change, Fevers Eyes: Normal ENT: denies sore throat, denies tristhmus Respiratory: Normal. absent: SOB, Cough, Sputum Cardiovascular: absent: Chest Pain, Palpitations, Syncope Gastrointestinal: Abdominal Pain, Diarrhea, Nausea, Vomiting Genitourinary: Normal. absent: Dysuria, Frequency, Hematuria Musculoskeletal: Normal. absent: Arthralgias, Back Pain, Neck Pain Skin: no rashes, no erythema Neurological: absent: Focal Weakness Endocrine: Normal Hemo/Lymphatic: Normal Psychiatric: No suicidal or homicidal ideations Physical exam Patient appears age appropriate in no distress, speaking full sentences without difficulty - Systems Exam Head: Present: Atraumatic, Normocephalic Pupils: Present: PERRL Extroacular Muscles: Present: EOMI Conjunctiva: Present: Normal Mouth: Present: Moist Mucous Membranes Neck: Present: Normal Range of Motion. No: MIDLINE TENDERNESS, Paraspinal Tenderness Respiratory/Chest: Present: Clear to Auscultation, Good Air Exchange. No: Respiratory Distress, Accessory Muscle Use, Tachypneic Cardiovascular: Present: Regular Rate and Rhythm, Normal S1, S2, Peripheal Pulses Present. No: Murmurs Abdomen: Present: Normal Bowel Sounds. No: Tenderness, Distention, Peritoneal Signs, Rebound, Guarding Back: Present: Normal Inspection. No: Midline Tenderness, Paraspinal Tenderness Upper Extremity: Present: Normal Inspection. No: Cyanosis, Edema Lower Extremity: Present: Normal Inspection. No: Edema Neurological: Present: GCS=15, Speech Normal, cranial nerves II through XII fully intact with no cerebellar abnormality, neurosensory fully intact. No focal neurological deficits. Skin: Present: Warm, Dry, Normal Color. No: Rashes Lymphatic: Present: OX3, NI, NC Psychiatric: Present: Alert, Oriented x 3, Normal Insight, Normal Concentration Vital Signs Reviewed: Yes Vital Signs Temp Pulse Resp BP Pulse Ox 03/08/17 14:05 79 18 130/71 100 03/08/17 12:30 98.2 F 86 18 132/75 100 Temperature: Afebrile Blood Pressure: Normal Pulse: Regular Respiratory Rate: Normal Appearance: Positive for: Well-Appearing Pain Distress: None Mental Status: Positive for: Alert and Oriented X 3 Finger Stick Blood Glucose: 299 Medical Decision Making ED Course and Treatment: 03/08/17 13:40 31-year-old male with abdominal pain, back pain, nausea vomiting and diarrhea. No acute findings on physical examination. Patient reports allergy to Tylenol. Patient then reported allergy to Toradol, however then corrected himself and states he is not really allergic but Toradol "does nothing for me". Patient states that his symptoms are consistent with previous pancreatitis symptoms. patient's previous records reviewed, he has been seen in the hospital multiple times for similar complaints. It has been noted the patient reported that he has follow-up with pain management, however during this visit he denies having any prior appointments or scheduled visits with pain management outpatient. Labs, fluids ordered. I have had a long discussion with patient regarding my concern for giving stronger medication than Tylenol or Toradol for pain, due to risk of development of opiate dependency and addiction. 03/08/17 14:11 informed by pt's RN that he eloped - Medication Orders Current Medication Orders: Discontinued Medications Sodium Chloride (Sodium Chloride 0.9%) 1,000 mls @ 1,000 mls/hr IV .Q1H STA Stop: 03/08/17 14:17 Ondansetron HCl (Zofran Inj) 4 mg IVP STAT STA Stop: 03/08/17 13:19 Disposition/Present on Arrival - Present on Arrival Any Indicators Present on Arrival: No History of DVT/PE: No History of Uncontrolled Diabetes: No Urinary Catheter: No History of Decub. Ulcer: No History Surgical Site Infection Following: None - Disposition Have Diagnosis and Disposition been Completed?: Yes Diagnosis: Abdominal pain Disposition: ELOPEMENT - ER ONLY Disposition Time: 14:11 Condition: UNKNOWN
[2017-03-08 14:06] VITALS: BP 130/71; PULSE 79
== END 2017-03-08 14:12 | disposition left against medical advice (07) ==
LOC: ED 12:26
DX: R10.9 Unspecified abdominal pain (principal)

== ENCOUNTER 2017-07-01 03:46 | Emergency (ER) | payer MEDICARE, OTHER ==
[2017-07-01 03:47] VITALS: BMI 20.3
[2017-07-01 04:00] VITALS: BP 106/54; PULSE 88; RESP 18; TEMP 99; O2SAT 98
[2017-07-01] MEDS ORDERED: Sodium Chloride 0.9% 1,000 ML IV STA ×2 (04:09→04:21)
--- NOTE | 2017-07-01 04:17 | ED PDOC ---
Arrival/HPI <Julio Tatum - Last Filed: 07/01/17 04:45> <Jose Pagan - Last Filed: 07/01/17 05:46> - General Chief Complaint: Abdominal Pain Time Seen by Provider: 07/01/17 03:56 - History of Present Illness Narrative History of Present Illness (Text): 31 year old male with a history of chronic pancreatitis who presents with epigastric pain with radiation to the back, generalized pruritus, and decreased PO intake for the past three days. He denies any chest pain, dyspnea, fever, chills, or discoloration of the skin or urine. Patient was at [facility] and [facility]. 07/01/17 04:48 (Julio Tatum) Past Medical History - Provider Review Nursing Documentation Reviewed: Yes - Infectious Disease Hx of Infectious Diseases: None - Tetanus Immunization Tetanus Immunization: Unknown - Reproductive Currently : No - Cardiac Hx Cardiac Disorders: No - Pulmonary Hx Respiratory Disorders: No - Neurological Hx Neurological Disorder: No - HEENT Hx HEENT Disorder: No - Renal Hx Renal Disorder: No - Endocrine/Metabolic Hx Endocrine Disorders: Yes Hx Diabetes Mellitus Type 1: Yes - Hematological/Oncological Hx Blood Disorders: No - Integumentary Hx Dermatological Disorder: Yes (GENERALIZED SKIN DRYNESS,PUSTULES WITH ITCHING, TATTOOS) - Musculoskeletal/Rheumatological Hx Musculoskeletal Disorders: No Hx Falls: No - Gastrointestinal Hx Gastrointestinal Disorders: Yes Hx Pancreatitis: Yes (CHRONIC) - Genitourinary/Gynecological Hx Genitourinary Disorders: No - Psychiatric Hx Psychophysiologic Disorder: No Hx Substance Use: No - Surgical History Hx Cholecystectomy: Yes - Anesthesia Hx Anesthesia: Yes Hx Anesthesia Reactions: No - Suicidal Assessment Feels Threatened In Home Enviroment: No <Julio Tatum - Last Filed: 07/01/17 04:45> - Provider Review Nursing Documentation Reviewed: Yes - Infectious Disease Hx of Infectious Diseases: None <Jose Pagan - Last Filed: 07/01/17 05:46> Family/Social History - Physician Review Nursing Documentation Reviewed: Yes Family/Social History: Unknown Family HX Smoking Status: Never Smoked Hx Alcohol Use: No Hx Substance Use: No <Julio Tatum - Last Filed: 07/01/17 04:45> Allergies/Home Meds <Julio Tatum - Last Filed: 07/01/17 04:45> <PaganJose P - Last Filed: 07/01/17 05:46> Allergies/Adverse Reactions: Allergies acetaminophen [From Tylenol] Allergy (Verified 07/01/17 03:52) RASH famotidine [From Pepcid] Allergy (Verified 07/01/17 03:52) RASH Home Medications: Home Meds Medication Instructions Recorded Confirmed Insulin Aspart/Insulin Aspar 10 unit SQ TID 11/03/15 03/08/17 [Novolog Mix 70/30 (70/30 units/ml)] Review of Systems - Review of Systems Constitutional: absent: Fatigue, Fevers, Night Sweats Eyes: absent: Vision Changes, Photophobia, Eye Pain ENT: Rhinorrhea, Sinus Congestion Respiratory: absent: SOB, Cough, Sputum Cardiovascular: absent: Chest Pain, Palpitations, Edema Gastrointestinal: Abdominal Pain Genitourinary Male: absent: Dysuria Musculoskeletal: Back Pain Skin: Pruritis. absent: Skin Lesions Neurological: absent: Headache, Dizziness Endocrine: absent: Polyuria, Polydipsia Psychiatric: absent: Anxiety, Depression <Pascual Tatumjerri - Last Filed: 07/01/17 04:45> - Review of Systems Gastrointestinal: Abdominal Pain, Nausea, Vomiting, Appetite Changes Musculoskeletal: Back Pain <Jose Pagan P - Last Filed: 07/01/17 05:46> Physical Exam Temperature: Afebrile Blood Pressure: Normal Pulse: Regular Respiratory Rate: Normal Appearance: Positive for: Non-Toxic Pain Distress: Mild Mental Status: Positive for: Alert and Oriented X 3 - Systems Exam Head: Present: Atraumatic, Normocephalic Pupils: Present: PERRL Extroacular Muscles: Present: EOMI Conjunctiva: Present: Normal Mouth: Present: Dry Nose (Internal): Present: Normal Inspection, No Active Bleeding Neck: Present: Normal Range of Motion. No: Trachea Midline Respiratory/Chest: Present: Clear to Auscultation, Good Air Exchange, Respiratory Distress, Accessory Muscle Use Cardiovascular: Present: Regular Rate and Rhythm, Murmurs, Normal S1, S2 Abdomen: Present: Tenderness (epigastric) Back: Present: Normal Inspection. No: CVA Tenderness, Paraspinal Tenderness, Pain with Leg Raise Upper Extremity: Present: Normal Inspection. No: Cyanosis, Edema Lower Extremity: Present: Normal Inspection. No: Edema, NORMAL PULSES, Erythema Neurological: Present: CN II-XII Intact, Speech Normal (facial asymmetry), Other Skin: Present: Warm, Dry, Normal Color Psychiatric: Present: Alert, Oriented x 3, Normal Insight <Julio Tatum - Last Filed: 07/01/17 04:45> Vital Signs Temp Pulse Resp BP Pulse Ox 07/01/17 03:54 99.0 F 88 18 106/54 L 98 Medical Decision Making <Julio Tatum - Last Filed: 07/01/17 04:45> <Jose Pagan - Last Filed: 07/01/17 05:46> ED Course and Treatment: Patient is actively asking for pain medication. Patient is bargaining for pain medication. 07/01/17 04:48 (Julio Tatum) 07/01/17 04:58 Patient has a long history of chronic abdominal pain and pancreatitis over 20 visits for this. Is often associated with narcotic seeking behavior. He is recently at an outside hospital earlier this evening and left and an elopement. WILL draw labs and give antiemetics and fluids nonnarcotic pain medicines . unless there is a change or sign of pathology we will defer narcotics 07/01/17 05:13 Patient is now wandering around actively asking me for pain medication I repeatedly offered him nonnarcotic such as Bentyl Toradol and Tylenol for his pain none of which he wants because he thinks he states "this does not work" I informed him that we would wait for his laboratory work if anything came back abnormal with treatment and for his pain with something stronger, however because of the number of visits he has had feel this is a chronic issue and IT is not appropriate to treat chronic issue which has no pathologic cause 07/01/17 05:24 Patient eloped from the emergency department after not receiving narcotics. Patient got out of room several times, requesting narcotics. Patient was offered Benadryl, Toradol and Tylenol, which he refused and became frustrated. Patient informed that he would not be given pain narcotic unless abnormal lab findings. Patient left emergency department after calling friend. Patient was walking without any difficulty with steady gait. his lab work was therefore cancelled as it was pending. 07/01/17 05:45 07/01/17 05:46 (Jose Pagan) - RAD Interpretation Radiology Orders: 07/01/17 04:23 ABD 2 VIEWS (FLAT/UP OR DECUB) [RAD] Stat - Medication Orders Current Medication Orders: Discontinued Medications Baclofen (Lioresal) 40 mg PO ONCE ONE Stop: 07/01/17 05:18 Last Admin: 07/01/17 05:25 Dose: Not Given Cyclobenzaprine HCl (Flexeril) 10 mg PO STAT STA Stop: 07/01/17 05:17 Last Admin: 07/01/17 05:25 Dose: Not Given Dicyclomine HCl (Bentyl) 10 mg PO ONCE ONE Stop: 07/01/17 05:13 Last Admin: 07/01/17 05:25 Dose: Not Given Diphenhydramine HCl (Benadryl) 25 mg IVP STAT STA Stop: 07/01/17 04:39 Last Admin: 07/01/17 05:09 Dose: 25 mg IVP Administration Document 07/01/17 05:09 ELDON (Rec: 07/01/17 05:09 ELDON [id number]) Charges for Administration # of IVP Administrations 1 Sodium Chloride (Sodium Chloride 0.9%) 1,000 mls @ 999 mls/hr IV .Q1H1M STA Stop: 07/01/17 05:09 Last Admin: 07/01/17 05:24 Dose: Not Given Sodium Chloride (Sodium Chloride 0.9%) 1,000 mls @ 999 mls/hr IV .Q1H1M STA Stop: 07/01/17 05:21 Last Admin: 07/01/17 05:24 Dose: Not Given Ketorolac Tromethamine (Toradol) 30 mg IVP STAT STA Stop: 07/01/17 04:23 Last Admin: 07/01/17 05:24 Dose: Not Given Ondansetron HCl (Zofran Inj) 4 mg IVP STAT STA Stop: 07/01/17 04:22 Last Admin: 07/01/17 05:24 Dose: Not Given - 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 <Jose Pagan - Last Filed: 07/01/17 05:46> Disposition/Present on Arrival - Present on Arrival History of DVT/PE: No History of Uncontrolled Diabetes: No Urinary Catheter: No History of Decub. Ulcer: No History Surgical Site Infection Following: None <Julio Tatum - Last Filed: 07/01/17 04:45> - Present on Arrival Any Indicators Present on Arrival: No History of DVT/PE: No History of Uncontrolled Diabetes: No Urinary Catheter: No History of Decub. Ulcer: No - Disposition Have Diagnosis and Disposition been Completed?: Yes Disposition Time: 05:32 Patient Plan: Other (ELOPED) <Jose Pagan - Last Filed: 07/01/17 05:46> - Disposition Diagnosis: Drug-seeking behavior, Chronic abdominal pain Disposition: ELOPEMENT - ER ONLY Condition: STABLE Referrals: Juan Dao MD [Primary Care Provider] - Follow up with primary Forms: [employer] (Maldivian)
[2017-07-01] MEDS ORDERED: HYDROmorphone 1 mg/ml ISec IVP STA (04:21)
[2017-07-01] MEDS ORDERED: DiphenhydrAMINE 50 mg/ml Inj ONE (04:38)
[2017-07-01] MEDS ORDERED: DiphenhydrAMINE 50 mg/ml Inj IVP STA (04:38)
== END 2017-07-01 05:28 | disposition left against medical advice (07) ==
LOC: ED 03:46
DX: R10.9 Unspecified abdominal pain (principal); G89.29 Other chronic pain; Z76.5 Malingerer [conscious simulation]
CPT/HCPCS: 96374; 99282; J1200

== ENCOUNTER 2017-07-21 14:56 | Emergency (ER) | payer MEDICARE, OTHER ==
[2017-07-21 15:02] VITALS: BMI 14.8
[2017-07-21 15:07] VITALS: BP 102/74; PULSE 85; RESP 18; TEMP 97.5; O2SAT 100
[2017-07-21] MEDS ORDERED: Sodium Chloride 0.9% 1,000 ML IV STA (15:19)
[2017-07-21] MEDS ORDERED: Iohexol 240 (50 ml) ONE (15:27)
--- NOTE | 2017-07-21 15:44 | ED PDOC ---
Arrival/HPI - General Chief Complaint: Male Genitourinary Time Seen by Provider: 07/21/17 15:02 Historian: Patient - History of Present Illness Narrative History of Present Illness (Text): 07/21/17 15:40 31yo male with Past medical history of chronic pancreatitis and IDDM present with complaint of upper abdominal pain that radiates to his pain and hematuria x 2weeks. Patient's pain is his usually chronic pain. He was at [place] and [facility] today for similar complaint and signed out AMA in both places when he didn' t get narcotics. Patient was asking for narcotics when he was seen. Review of his charts indicates drug seeking behavior. Patient has been seen over 30times in the past 2yrears for similar complaint. He denies vomiting diarrhea, fever, chills, hematemesis, hematochezia, chest pain, any other complaint. Past Medical History - Provider Review Nursing Documentation Reviewed: Yes - Infectious Disease Hx of Infectious Diseases: None - Tetanus Immunization Tetanus Immunization: Unknown - Reproductive Currently : No - Cardiac Hx Hypertension: No Hx Mitral Valve Prolapse: No Hx Peripheral Edema: No - Pulmonary Hx Pneumonia: No - Neurological Hx Alzheimer's Disease: No Hx Migraine: No Hx Multiple Sclerosis: No Hx Parkinson's Disease: No - HEENT Hx HEENT Disorder: No - Renal Hx Renal Disorder: No - Endocrine/Metabolic Hx Endocrine Disorders: Yes Hx Diabetes Mellitus Type 1: Yes - Hematological/Oncological Hx Anemia: No - Integumentary Hx Dermatological Disorder: Yes (GENERALIZED SKIN DRYNESS,PUSTULES WITH ITCHING, TATTOOS) - Musculoskeletal/Rheumatological Hx Osteoporosis: No - Gastrointestinal Hx Gastrointestinal Disorders: Yes Hx Pancreatitis: Yes (CHRONIC) - Genitourinary/Gynecological Hx Genitourinary Disorders: No - Psychiatric Hx Psychophysiologic Disorder: No Hx Substance Use: No - Surgical History Hx Cholecystectomy: Yes Other/Comment: R chest port - Anesthesia Hx Anesthesia: Yes Hx Anesthesia Reactions: No - Suicidal Assessment Feels Threatened In Home Enviroment: No Family/Social History - Physician Review Nursing Documentation Reviewed: Yes Family/Social History: Unknown Family HX Smoking Status: Never Smoked Hx Alcohol Use: No Hx Substance Use: No Allergies/Home Meds Allergies/Adverse Reactions: Allergies acetaminophen [From Tylenol] Allergy (Verified 07/21/17 15:02) RASH famotidine [From Pepcid] Allergy (Verified 07/21/17 15:02) RASH ketorolac [From Toradol] Allergy (Verified 07/21/17 15:02) RASH Home Medications: Home Meds Medication Instructions Recorded Confirmed No Known Home Med 07/21/17 07/21/17 Review of Systems - Physician Review All systems were reviewed & negative as marked: Yes - Review of Systems Constitutional: Normal Eyes: Normal ENT: Normal Respiratory: Normal Cardiovascular: Normal Gastrointestinal: Abdominal Pain, Nausea. absent: Constipation, Diarrhea, Vomiting, Hematochezia, Hematemesis Genitourinary Male: Hematuria. absent: Dysuria, Frequency Musculoskeletal: Normal Skin: Normal Neurological: Normal Endocrine: Normal Hemo/Lymphatic: Normal Psychiatric: Normal Physical Exam Vital Signs Reviewed: Yes Vital Signs Temp Pulse Resp BP Pulse Ox 07/21/17 15:07 97.5 F L 85 18 102/74 100 Temperature: Afebrile Blood Pressure: Normal Pulse: Regular Respiratory Rate: Normal Appearance: Positive for: Well-Appearing, Non-Toxic, Comfortable Pain Distress: None Mental Status: Positive for: Alert and Oriented X 3 Finger Stick Blood Glucose: 500 - Systems Exam Head: Present: Atraumatic, Normocephalic Pupils: Present: PERRL Extroacular Muscles: Present: EOMI Conjunctiva: Present: Normal Mouth: Present: Moist Mucous Membranes Neck: Present: Normal Range of Motion Respiratory/Chest: Present: Clear to Auscultation, Good Air Exchange. No: Respiratory Distress, Accessory Muscle Use Cardiovascular: Present: Regular Rate and Rhythm, Normal S1, S2. No: Murmurs Abdomen: Present: Tenderness (Diffuse tenderness), Normal Bowel Sounds, Other ( soft). No: Distention, Peritoneal Signs, Rebound, Guarding, McBurney's Point Tender, Rovsing's Sign Present Back: Present: Paraspinal Tenderness (Right sided). No: CVA Tenderness Upper Extremity: Present: Normal Inspection. No: Cyanosis, Edema Lower Extremity: Present: Normal Inspection. No: Edema Neurological: Present: GCS=15, CN II-XII Intact, Speech Normal Skin: Present: Warm, Dry, Normal Color. No: Rashes Psychiatric: Present: Alert, Oriented x 3, Normal Insight, Normal Concentration Medical Decision Making ED Course and Treatment: 07/21/17 15:46 PT asking for narcotics in emergency department. Secondary to the review of his charts, patient have chronic abdominal pain and in emergency department for same complaint. He was under a care of a pain management. He was notified that he will be treated for his pain with nonnarcotic analgesia and if any acute pathology or finding is made, he will be treated with narcotics. Lab, Abdominal CT and 1L NS, Toradol, Bentyl, Zofran was ordered. Pt however eloped from the emergency department pending the lab work and imaging. - Medication Orders Current Medication Orders: Discontinued Medications Dicyclomine HCl (Bentyl) 10 mg PO ONCE STA Stop: 07/21/17 15:23 Last Admin: 07/21/17 15:32 Dose: Not Given Non-Admin Reason: Patient Refused Sodium Chloride (Sodium Chloride 0.9%) 1,000 mls @ 1,000 mls/hr IV .Q1H STA Stop: 07/21/17 16:18 Last Admin: 07/21/17 15:32 Dose: Not Given Non-Admin Reason: Patient Refused Ketorolac Tromethamine (Toradol) 30 mg IVP STAT STA Stop: 07/21/17 15:24 Last Admin: 07/21/17 15:32 Dose: Not Given Non-Admin Reason: Patient Refused Ondansetron HCl (Zofran Inj) 4 mg IVP STAT STA Stop: 07/21/17 15:20 Last Admin: 07/21/17 15:32 Dose: Not Given Non-Admin Reason: Patient Refused Disposition/Present on Arrival - Present on Arrival Any Indicators Present on Arrival: No History of DVT/PE: No History of Uncontrolled Diabetes: No Urinary Catheter: No History of Decub. Ulcer: No History Surgical Site Infection Following: None - Disposition Have Diagnosis and Disposition been Completed?: Yes Diagnosis: Abdominal pain, Hematuria Disposition: LEFT W/O TREATMENT - ER ONLY Disposition Time: 15:30 Condition: FAIR Referrals: Juan Dao MD [Primary Care Provider] - Follow up with primary Forms: [employer] (Greenlandic)
== END 2017-07-21 15:38 | disposition left against medical advice (07) ==
LOC: ED 14:56
DX: R10.10 Upper abdominal pain, unspecified (principal); R31.9 Hematuria, unspecified; E10.9 Type 1 diabetes mellitus without complications
CPT/HCPCS: 99284; Q9966

== ENCOUNTER 2017-08-13 07:02 | Emergency (ER) | payer MEDICARE, OTHER ==
[2017-08-13 07:03] VITALS: BMI 14.8
[2017-08-13 07:44] VITALS: BP 138/82; PULSE 92; RESP 18; TEMP 98.7; O2SAT 97
--- NOTE | 2017-08-13 08:44 | ED PDOC ---
Arrival/HPI - General Chief Complaint: Abdominal Pain Time Seen by Provider: 08/13/17 07:06 - History of Present Illness Narrative History of Present Illness (Text): 32 y/o M c PMHx chronic pancreatitis p/w abdominal pain x 1 month. Patient states that he has abdominal pain from his chronic pancreatitis, states he is on pancreas transplant list at [facility]. He reports vomiting. He denies fever, chest pain, dyspnea, dysuria, diarrhea, hematuria. Patient with frequent visits to ED for chronic abdominal pain. Past Medical History - Infectious Disease Hx of Infectious Diseases: None - Tetanus Immunization Tetanus Immunization: Unknown - Reproductive Currently : No - Cardiac Hx Hypertension: No Hx Mitral Valve Prolapse: No Hx Peripheral Edema: No - Pulmonary Hx Pneumonia: No - Neurological Hx Alzheimer's Disease: No Hx Migraine: No Hx Multiple Sclerosis: No Hx Parkinson's Disease: No - HEENT Hx HEENT Disorder: No - Renal Hx Renal Disorder: No - Endocrine/Metabolic Hx Endocrine Disorders: Yes Hx Diabetes Mellitus Type 1: No (Pt reports he is not diabetic) - Hematological/Oncological Hx Anemia: No - Integumentary Hx Dermatological Disorder: Yes (GENERALIZED SKIN DRYNESS,PUSTULES WITH ITCHING, TATTOOS) - Musculoskeletal/Rheumatological Hx Osteoporosis: No - Gastrointestinal Hx Pancreatitis: Yes (CHRONIC) - Genitourinary/Gynecological Hx Genitourinary Disorders: No - Psychiatric Hx Psychophysiologic Disorder: No Hx Substance Use: No - Surgical History Hx Cholecystectomy: Yes - Anesthesia Hx Anesthesia: Yes Hx Anesthesia Reactions: No - Suicidal Assessment Feels Threatened In Home Enviroment: No Family/Social History Family/Social History: No Known Family HX Smoking Status: Never Smoked Hx Alcohol Use: No Hx Substance Use: No Allergies/Home Meds Allergies/Adverse Reactions: Allergies acetaminophen [From Tylenol] Allergy (Verified 08/10/17 16:39) RASH famotidine [From Pepcid] Allergy (Verified 08/10/17 16:39) RASH ketorolac [From Toradol] Allergy (Verified 08/10/17 16:39) RASH Home Medications: Home Meds Medication Instructions Recorded Confirmed No Known Home Med 07/21/17 08/13/17 Review of Systems - Physician Review All systems were reviewed & negative as marked: Yes - Review of Systems Constitutional: absent: Fevers Respiratory: absent: Cough Physical Exam - Physical Exam Narrative Physical Exam (Text): Constitutional: No acute distress. Head: Normocephalic. Atraumatic. Eyes: PERRL. ENT: Moist mucous membranes. Neck: Supple. Cardiovascular: Regular rate. Chest: No tenderness. Respiratory: Clear to auscultation bilaterally. GI: Epigastric tenderness. Nondistended. Back: No CVA tenderness. Musculoskeletal: No tenderness or swelling of extremities. Skin: No rash. Neurologic: Alert, no focal deficit. 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 Discussed with patient can perform evaluation for abdominal pain which he is now stating feels different than his pancreatitis. 08/13/17 08:44 Patient has decided to sign out AMA. Labs and CT not performed. - RAD Interpretation Radiology Orders: 08/13/17 07:45 ABD & PELVIS IV CONTRAST ONLY [CT] Stat Disposition/Present on Arrival - Present on Arrival Any Indicators Present on Arrival: No History of DVT/PE: No History of Uncontrolled Diabetes: No Urinary Catheter: No History of Decub. Ulcer: No History Surgical Site Infection Following: None - Disposition Have Diagnosis and Disposition been Completed?: Yes Diagnosis: Abdominal pain Disposition: AGAINST MEDICAL ADVICE Disposition Time: 08:46 Condition: UNKNOWN Discharge Instructions (ExitCare): Against Medical Advice (ED) Referrals: Juan Dao MD [Primary Care Provider] - Follow up with primary Forms: [employer] (Indonesian) Against Medical Advice - AMA Patient Left Against Medical Advice: The patient declines admission to the hospital and wishes to leave the Emergency Department. This action is against my medical advice. This decision was made with informed refusal. The patient was told that admission to the hospital is necessary. Explanation of the reasons why were discussed. The risks of leaving were explained to the patient and include, but are not limited to, worsening of known or currently unknown conditions, permanent disability and from undiagnosed or untreated conditions. The patient has the capacity to make this informed decision and understands my explanation of the current medical problem and risks of leaving. The patient voluntarily accepts these risks and signed an AMA form documenting our conversation. The patient was given the opportunity to ask questions and reconsider. The patient was encouraged to return to the Emergency Department at any time for further care.
== END 2017-08-13 08:54 | disposition left against medical advice (07) ==
LOC: ED 07:02
DX: R10.9 Unspecified abdominal pain (principal)